=== PATIENT | female | born 1940 | race Caucasian/White ===

== ENCOUNTER 2019-06-30 04:20 | Outpatient (RCR) | payer MEDICARE, OTHER, SELFPAY | END 2019-07-03 00:01 | LOC: LAB 04:20 | PROVIDERS: Family Provider Physician Assistant Medical; Visit Provider Family Medicine | DX: E78.5 Hyperlipidemia, unspecified (principal) | CPT/HCPCS: 80048; 80061; 85025 ==

== ENCOUNTER 2019-07-21 06:00 | Outpatient (RCR) | payer MEDICARE, OTHER, SELFPAY | END 2019-08-03 00:01 | LOC: LAB 06:00 | PROVIDERS: Family Provider Physician Assistant Medical; Visit Provider Family Medicine | DX: N39.0 Urinary tract infection, site not specified (principal); R41.82 Altered mental status, unspecified | CPT/HCPCS: 80053; 81003; 82550; 83735; 85025; 87086 ==

== ENCOUNTER 2019-10-11 11:25 | Observation (INO) | payer MEDICARE, OTHER, SELFPAY ==
[2019-10-11 11:26] VITALS: BMI 25.6
--- NOTE | 2019-10-11 11:26 | CT_ITS ---
WS: [id number] CT HEAD NONCONTRAST HISTORY: Symptoms of Acute Stroke TECHNIQUE: Contiguous axial imaging performed through the brain in 2.5 mm imaging. Bone and soft tiss ue windows. Sagittal and coronal reformats reviewed. All CT scans at [facility] use at ast one of these dose optimization techniques: automated exposure control; mA and/or kV adjustment pe r patient size (includes targeted exams where dose is matched to clinical indication); or iterative r econstruction. DLP: 575.22 mGy.cm COMPARISON: 08/30/2018 Study limited by motion artifact. No acute intracranial hemorrhage, midline shift or mass effect. Moderate atrophy bilaterally. Large remote LEFT frontotemporal infarct. Additional chronic microvascu lar ischemic changes. There is a new area of decreased attenuation in the posterior RIGHT frontal tem poral lobe which may be an area of new infarction. Ventricles: Normal size with no hydrocephalus. Paranasal sinuses: As visualized are clear. Mastoid air cells: Well pneumatized. Calvarium and scalp: Stable lytic area in the LEFT parietal bone. Notified Blair Silveira DO at 10/11/2019 11:[address]/CT head wo con* [id number] IMPRESSION: 1. No acute intracranial hemorrhage or edema. 2. New area of decreased attenuation in the posterior RIGHT frontotemporal reg ion. Could be in an acute infarct. 3. Study limited by motion. 4. Remote LEFT frontotemporal infarct.
--- NOTE | 2019-10-11 11:26 | ECG_ITS ---
Measurements Intervals [place] Rate: 66 P: 85 IL: 204 QRS: 43 QRSD: 93 T: 251 QT: 434 QTc: [address] DEVIATION AND MODERATE T-WAVE ABNORMALITY, CONSIDER LATERAL ISCHEMIA [-0.1+ mV mV T WAVE IN I/aVL/V5/V6] ST DEVIATION AND MODERATE T-WAVE ABNORMALITY, CONSIDER INFERIOR ISCHEMIA [-0.1 mV T WAVE IN II/aVF] Compared to ECG 08/28/2018 14:06:24 Sinus bradycardia no longer present Left-axis deviation no longer present T-wave abnormality still present Possible ischemia still present Electronically Signed On 10-11-2019 20:49:30 CDT by Kirk Friedman M.D. [email or web address]
--- NOTE | 2019-10-11 11:28 | ED_ITS ---
Entered by Kzizy Casillas, acting as scribe for Blair Silveira DO HPI - Neuro Symptoms/Deficit General: Chief Complaint: Seizure Stated Complaint: STROKE LIKE SYMPTOMS Time Seen by Provider: 10/11/19 11:31 Source: EMS Mode of arrival: EMS History of Present Illness: HPI Narrative: 79 yo female presents with stroke like symptoms, L sided facial weakness and facial droop. per nursing staff and EMS the pt was in her wheel chair and she came out to the table when they noticed the facial weakness then she was unresponsive. per EMS when they was moving her to their cot she became more alert and she was talking to them. all symptoms resloved in the ED. pt denies an other symptoms at this time. This time initially seen patient all of her symptoms are completely resolved. Onset (ago): hour(s) (10:30 am) Timing confirmed by: other (nursing staff) Location: left face History of same: No Severity: moderate Quality: weak Relieving factors: none Exacerbating factors: none Context: sudden onset (10:30) Associated symptoms: Reports weakness and other; Deny chest pain, malaise, nausea or vomiting Treatments Prior to Arrival: other (EMS) Review of Systems General: Reports: ROS unobtainable due to medical condition Const: Denies: fever, chills, body aches, change in appetite, fatigue or malaise ENMT: Denies: throat pain, ear pain, nasal discharge or nasal congestion Card: Denies: chest pain, edema, shortness of breath on exertion or shortness of breath when lying down Resp: Denies: shortness of breath, productive cough or non-productive cough GI: Denies: abdominal pain, nausea, vomiting, vomiting blood, coffee grounds in vomit, diarrhea, constipation, bloating, blood in stool or black tarry stool : Denies: flank pain, difficulty urinating, painful urination, urinary frequency or urinary urgency Skin/Breast: Denies: rash or itching PFS ED PFSH: Medical History (Updated 10/12/19 @ 10:00 by Kalpesh Gaviria MD) Anemia Stable CAD (coronary artery disease) Carotid artery disease Chronic kidney disease (CKD) CVA (cerebral vascular accident) Dementia Diabetes Hyperlipidemia Hypertension Parkinson disease Peripheral neuropathy Surgical History (Updated 10/11/19 @ 14:54 by Kalpesh Gaviria MD) History of left-sided carotid endarterectomy Family History (Updated 10/11/19 @ 14:54 by Kalpesh Gaviria MD) Other Stroke Social History (Updated 10/11/19 @ 14:54 by Kalpesh Gaviria MD) Smoking and tobacco status: former smoker Alcohol intake: never Substance/Drug Use: never NIH stroke score NIHSS: Level Of Consciousness - 1a: 0 Level Of Consciousness Questions - 1b: Both Correct Level Of Consciousness Commands - 1c: Both Correct Best Gaze - 2: Normal Visual Mar - 3: No Visual Loss Facial Palsy - 4: Nor mal Motor Arm Right - 5: No Drift Motor Arm Left - 5: No Drift Motor Leg Right - 6: No Drift Motor Leg Left - 6: No Drift Limb Ataxia - 7: Absent Sensory - 8: Normal Best Language - 9: No Aphasia Dysarthia - 10: Normal Extinction And Inattention - 11: 0 Score: Total Score: 0 Physical Exam Const: COMMON NORMALS: no apparent distress GENERAL APPEARANCE: cooperative and comfortable ORIENTATION/CONSCIOUSNESS: Yes awake, Yes oriented to person, Yes oriented to place and Yes oriented to time HENMT: COMMON NORMALS: normocephalic, head/scalp atraumatic, hearing grossly normal bilaterally, external ears normal, EAC's normal, TM's normal bilaterally, nasal mucous membranes and turbinates normal, moist oral mucous membranes and oropharynx normal HEAD & SCALP: normocephalic and atraumatic NOSE: nasal mucous membranes and turbinates normal EXTERNAL EAR: Yes external ears normal EXTERNAL AUDITORY CANAL: EAC's normal TYMPANIC MEMBRANE: TM's normal bilaterally Eye: COMMON NORMALS: PERRL, EOMs intact bilaterally, conjunctivae normal and no scleral icterus CONJUNCTIVA: Yes conjunctivae normal PUPIL: Yes PERRL Neck/C-Spine: COMMON NORMALS: full ROM, no lymphadenopathy, supple and no JVD Lymph: LYMPHATIC: no lymphadenopathy noted and no lymphedema noted Resp: COMMON NORMALS: normal respiratory effort, no retractions, no use of accessory muscles and clear to auscultation bilaterally AUSCULTATION: clear to auscultation bilaterally Cardio: COMMON NORMALS: no JVD, regular rate, regular rhythm and no murmurs RATE: regular rate RHYTHM: regular rhythm GI: COMMON NORMALS: soft to palpation and no hepatosplenomegaly AUSCULTATION: Yes normoactive bowel sounds PALPATION: Yes soft, No tender, No guarding and Yes no hepatosplenomegaly Extremity: COMMON NORMALS: normal to inspection, normal capillary refill, no clubbing, cyanosis or edema, no calf tenderness and no pedal edema Neuro: SENSORIUM/ORIENTATION: Yes oriented to person, Yes oriented to place and Yes oriented to time Skin: COMMON NORMALS: no rashes or lesions noted GENERAL SKIN EXAM: no rashes or lesions noted Course ED course: No bleed on the CT but there is an subacute CVA. We will go and admit the patient for further evaluation. At time of admission her symptoms are still completely resolved. Vital Signs: Vital signs: Vital Signs Temperature 98.7 F 10/12/19 11:14 Pulse Rate 77 10/12/19 11:14 Respiratory Rate 18 10/12/19 11:14 Blood Pressure 171/72 10/12/19 11:14 Pulse Oximetry 90 10/12/19 11:14 MDM - Neuro Symptoms/Deficit Lab Data: Labs: Lab Results 10/11/19 10/11/19 10/11/19 Range/Units 11:48 11:48 11:48 WBC 4.8 (4.0-10.0) 10^3/ uL RBC 3.92 L (4.1-5.3) 10^6/u L Hgb 11.2 L (11.5-15.3) g/dL Hct 36.6 L (37.0-47.0) % MCV 93.4 (81-99) fL MCH 28.6 (28.0-34.0) pg MCHC 30.6 (30.0-36.0) g/dL RDW 14.1 (12.1-15.1) % Plt Count 156 (130-400) 10^3/c mm MPV 9.5 (7.4-10.4) fL Neut % (Auto) 56.5 % Lymph % (Auto) 30.5 % Stephens % (Auto) 9.5 % Eos % (Auto) 2.7 % Baso % (Auto) 0.6 % Neut # (Auto) 2.7 (1.8-7.7) 10^3/u L Lymph # (Auto) 1.5 (0.8-4.8) 10^3/u L Stephens # (Auto) 0.5 (0.2-0.9) 10^3/u L Eos # (Auto) 0.1 (0.0-0.8) 10^3/u L Baso # (Auto) 0.0 (0.0-0.1) 10^3/u L Nucleated RBC % (a uto) 0 % Nucleated RBCs # 0.0 /100WBC PT 12.60 (10.5-13.3) SECO NDS INR 0.92 (0.8-1.2) APTT 33.5 (23.9-36.7) SECO NDS Sodium 143 (136-145) mmol/L Potassium 4.1 (3.5-5.1) mmol/L Chloride 105 (98-107) mmol/L Carbon Dioxide 26 (22-29) mmol/L Anion Gap 16.1 (5-19) BUN 21 (8-23) mg/dL Creatinine 1.3 H (0.5-0.9) mg/dL Glucose 131 H (65-115) mg/dL Calculated Osmolal ity 294 (285-295) mOsm/k g Calcium 9.8 (8.5-10.5) mg/dL Total Bilirubin 0.2 (0.15-1.2) mg/dL AST 19 (0-32) U/L ALT 12 (0-33) U/L Alkaline Phosphata se 82 (35-105) IU/L Troponin T Baselin e (0-10) ng/mL Total Protein 6.8 (6.6-8.7) g/dL Albumin 4.2 (3.5-5.2) g/dL Globulin 2.6 (1.3-4.6) g/dL Urine Color (Yellow) Urine Appearance (CLEAR) Urine pH (5-7) Ur Specific Gravit y (1.005-1.030) Urine Protein (Negative) Urine Glucose (UA) (Normal) Urine Ketones (Negative) Urine Blood (Negative) Urine Nitrate (Negative) Urine Bilirubin (NEGATIVE) Urine Urobilinogen (Negative) mg/dL Ur Leukocyte Ernestina ase (Negative) Urine RBC (0-2) /hpf Urine WBC (0-5) /hpf Ur Squamous Epith Cells (0-5) Urine Bacteria (NONE) Hyaline Casts Urine Opiates Scre en (Negative) ng/mL Ur Barbiturates Sc reen (Negative) ng/mL Ur Phencyclidine S crn (Negative) ng/mL Ur Amphetamines Sc reen (Negative) ng/mL U Benzodiazepines Scrn (Negative) ng/mL Urine Cocaine Scre en (Negative) ng/mL U Marijuana (THC) Screen (Negative) ng/mL 10/11/19 10/11/19 10/11/19 Range/Units 11:48 12:08 12:08 WBC (4.0-10.0) 10^3/ uL RBC (4.1-5.3) 10^6/u L Hgb (11.5-15.3) g/dL Hct (37.0-47.0) % MCV (81-99) fL MCH (28.0-34.0) pg MCHC (30.0-36.0) g/dL RDW (12.1-15.1) % Plt Count (130-400) 10^3/c mm MPV (7.4-10.4) fL Neut % (Auto) % Lymph % (Auto) % Stephens % (Auto) % Eos % (Auto) % Baso % (Auto) % Neut # (Auto) (1.8-7.7) 10^3/u L Lymph # (Auto) (0.8-4.8) 10^3/u L Stephens # (Auto) (0.2-0.9) 10^3/u L Eos # (Auto) (0.0-0.8) 10^3/u L Baso # (Auto) (0.0-0.1) 10^3/u L Nucleated RBC % (a uto) % Nucleated RBCs # /100WBC PT (10.5-13.3) SECO NDS INR (0.8-1.2) APTT (23.9-36.7) SECO NDS Sodium (136-145) mmol/L Potassium (3.5-5.1) mmol/L Chloride (98-107) mmol/L Carbon Dioxide (22-29) mmol/L Anion Gap (5-19) BUN (8-23) mg/dL Creatinine (0.5-0.9) mg/dL Glucose (65-115) mg/dL Calculated Osmolal ity (285-295) mOsm/k g Calcium (8.5-10.5) mg/dL Total Bilirubin (0.15-1.2) mg/dL AST (0-32) U/L ALT (0-33) U/L Alkaline Phosphata se (35-105) IU/L Troponin T Baselin e 25 H (0-10) ng/mL Total Protein (6.6-8.7) g/dL Albumin (3.5-5.2) g/dL Globulin (1.3-4.6) g/dL Urine Color Yellow (Yellow) Urine Appearance Clear (CLEAR) Urine pH 6 (5-7) Ur Specific Gravit y 1.015 (1.005-1.030) Urine Protein Neg (Negative) Urine Glucose (UA) Norm (Normal) Urine Ketones Negative (Negative) Urine Blood Neg (Negative) Urine Nitrate Negative (Negative) Urine Bilirubin Neg (NEGATIVE) Urine Urobilinogen Norm (Negative) mg/dL Ur Leukocyte Ernestina ase 1+ H (Negative) Urine RBC None (0-2) /hpf Urine WBC 5-10 H (0-5) /hpf Ur Squamous Epith Cells 0-4 H (0-5) Urine Bacteria 1+ H (NONE) Hyaline Casts 0-4 H Urine Opiates Scre en Negative (Negative) ng/mL Ur Barbiturates Sc reen Negative (Negative) ng/mL Ur Phencyclidine S crn Negative (Negative) ng/mL Ur Amphetamines Sc reen Negative (Negative) ng/mL U Benzodiazepines Scrn Negative (Negative) ng/mL Urine Cocaine Scre en Negative (Negative) ng/mL U Marijuana (THC) Screen Negative (Negative) ng/mL Discharge Plan Discharge Patient Disposition: Admitted As Inpatient Admit Provider: Kalpesh Gaviria Clinical Impression: Acute CVA (cerebrovascular accident) Condition: Stable Discharge Orders: Discharge Order (Routine); Ordered 10/12/19 Ordered By: Kalpesh Gaviria Referrals: Surendra Matute [Family Provider] - 1 month (follow up with his primary care in [facility]) Discharge Diet: Diabetic Discharge Activity: Resume usual activity Patient Instructions: Anemia, Cefuroxime (By mouth), Aspirin (By mouth), Atorvastatin (By mouth), Parkinson's Disease (DC), Carotid Artery Disease (DC), Stroke Stoplight Additional Instructions: Take all medicine as prescribed. No doses have changed for Lipitor, aspirin. Discharge Date/Time: 10/11/19 14:18 Coding Level of Care Code ED Life Assurance Representative for Chg Fwd Exam Comprehensive The documentation recorded by the Vinny herrera Bridget Annette, accurately reflects the service I personally performed and the decisions made by Jordana mayfield Curtis L, DO Oct 11, 2019 11:25
[2019-10-11 11:39] VITALS: BP 184/78; PULSE 68; RESP 20; TEMP 36.6; O2SAT 95
[2019-10-11 11:56] LABS: Basophils % 0.6 %; Eosinophils # 0.1 10^3/uL (0.0-0.8); Eosinophils % 2.7 %; Hematocrit 36.6 % (37.0-47.0); Hemoglobin 11.2 g/dL (11.5-15.3); Lymphocytes # 1.5 10^3/uL (0.8-4.8); Lymphocytes % 30.5 %; Mean Corpuscular HGB Conc 30.6 g/dL (30.0-36.0); Mean Corpuscular Hemoglobin 28.6 pg (28.0-34.0); Mean Corpuscular Volume 93.4 fL (81-99); Mean Platelet Volume 9.5 fL (7.4-10.4); Monocytes # 0.5 10^3/uL (0.2-0.9); Monocytes % 9.5 %; Neutrophils # 2.7 10^3/uL (1.8-7.7); Neutrophils % 56.5 %; Nucleated Red Blood Cells % 0 %; Platelet Count 156 10^3/cmm (130-400); Red Blood Count 3.92 10^6/uL (4.1-5.3); Red Cell Distribution Width 14.1 % (12.1-15.1); White Blood Count 4.8 10^3/uL (4.0-10.0)
[2019-10-11 12:08] LABS: INR 0.92 (0.8-1.2)
[2019-10-11 12:09] LABS: Partial Thromboplastin Time 33.5 SECONDS (23.9-36.7)
[2019-10-11 12:13] LABS: Alanine Aminotransferase 12 U/L (0-33); Albumin Level 4.2 g/dL (3.5-5.2); Alkaline Phosphatase 82 IU/L (35-105); Anion Gap 16.1 (5-19); Aspartate Amino Transferase 19 U/L (0-32); Blood Urea Nitrogen 21 mg/dL (8-23); Calcium 9.8 mg/dL (8.5-10.5); Carbon Dioxide 26 mmol/L (22-29); Chloride 105 mmol/L (98-107); Globulin 2.6 g/dL (1.3-4.6); Glucose 131 mg/dL (65-115); Osmolality Calculated 294 mOsm/kg (285-295); Potassium 4.1 mmol/L (3.5-5.1); Sodium 143 mmol/L (136-145); Total Bilirubin 0.2 mg/dL (0.15-1.2); Total Protein 6.8 g/dL (6.6-8.7)
[2019-10-11 12:30] LABS: Add Urine Microscopic? YES; Bilirubin Urine Neg (NEGATIVE); Blood Urine Neg (Negative); Glucose Urine UA Norm (Normal); Ketones Urine Negative (Negative); Leukocyte Esterase Urine 1+ (Negative); Nitrate Urine Negative (Negative); Protein Urine Neg (Negative); Specific Gravity, Urine 1.015 (1.005-1.030); Urine Appearance Clear (CLEAR); Urine Color Yellow (Yellow); Urobilinogen Urine Norm (Negative); pH Urine 6 (5-7)
--- NOTE | 2019-10-11 12:32 | PC.NURSE ---
PHYSICAL ASSESSMENT Chief Complaint: PER NH: Stroke GENERAL / NEURO / PSYCH: Alert and oriented x 4, Tremor noted to left arm/hand ( normal per patient). NIHSS: 4 ( see stroke packet ) . Patient able to sit up, stand, and transfer to bedside commode. LB COMA SCORE: 15 HEENT: Facial asymmetry noted. Mucous membranes are pink. RESPIRATORY: Lung sounds clear and equal. Non-productive cough CVS: Capillary refill less than 2 seconds. GI / : Abdomen soft and nontender and normal bowel sounds. SKIN: Skin intact. Skin is warm and dry. Normal skin turgor. -
--- NOTE | 2019-10-11 12:34 | PC.NURSE ---
sound printer, pulse oximeter and NIBP monitor placed on patient; information assoc- Lead I, II and III; monitor alarms on.
[2019-10-11 12:38] LABS: Add Urine Culture? No; Bacteria Urine 1+; Hyaline Casts Urine 0-4; Squamous Epithelial Cell Urine 0-4 (0-5)
[2019-10-11 12:39] LABS: Amphetamines Screen Urine Negative (Negative); Barbiturates Screen Urine Negative (Negative); Benzodiazepines Screen Urine Negative (Negative); Cocaine Screen Urine Negative (Negative); Opiate Screen Urine Negative (Negative); PCP Screen Urine Negative (Negative); THC Screen Urine Negative (Negative)
--- NOTE | 2019-10-11 13:53 | XRR_ITS ---
PROCEDURE INFORMATION: Exam: XR Chest, 1 View Exam date and time: 10/11/2019 2:02 PM Age: 79 years old Clinical indication: Other: Stroke like symptoms; Additional info: CVA TECHNIQUE: Imaging protocol: XR of the chest Views: 1 view. COMPARISON: CR Chest 1 [place] [id number] 08/28/2018 1:08 PM FINDINGS: Lungs: There is patchy consolidation in the lingula along the left heart border. The right lung is clear. There is lung emphysema. Pleural space: Unremarkable. No pleural effusion. No pneumothorax. Heart/Mediastinum: Unremarkable. No cardiomegaly. Bones/joints: Unremarkable. XR/XR chest 1V portable [id number] IMPRESSION: There is patchy consolidation in the lingula consistent with atelectasis and/or pneumonia.
[2019-10-11 14:04] LABS: Troponin(5th) Baseline 25 ng/mL (0-10)
[2019-10-11 14:15] LABS: Troponin 5 2HR 30.38 ng/mL (0-10); Troponin 5 2HR Delta 5.38 ABS# (0-10)
[2019-10-11 14:17] VITALS: BP 116/90; PULSE 59; RESP 14; O2SAT 92
[2019-10-11 14:28] VITALS: BP 175/74; PULSE 57; RESP 14; TEMP 36.2; O2SAT 94
--- NOTE | 2019-10-11 14:28 | USCV_ITS ---
Ghazaal Crawford Age: 79 Gender: F : 1940 Exam Date: 10/11/2019 17:56 Ordering Phys: Kalpesh Gaviria MD Technologist: Estephania Gage [place] [facility] [place]: CVA BP: / HR: 62 Rhythm: Sinus Technical Quality: Adequate MEASUREMENTS (Male / Female) Normal Values 2D ECHO LV Diastolic Diameter PLAX 4.5 cm 4.2 - 5.9 / 3.9 - 5.3 cm LV Systolic Diameter PLAX 2.9 cm LV Chamber Size 3.2 cm IVS Diastolic Thickness 1.0 cm 0.6 - 1.0 / 0.6 - 0.9 cm IVS Systolic Thickness 1.3 cm LVPW Diastolic Thickness 1.3 cm 0.6 - 1.0 / 0.6 - 0.9 cm LVPW Systolic Thickness 1.6 cm RV Chamber Size 2.7 cm LVOT Diameter 2.0 cm LV Ejection Fraction 2D Teich 63.5 % LV Ejection Fraction MOD 2C 50.9 % LV Ejection Fraction 2C AL 53.0 % LA Diameter 3.7 cm LA Width 3.3 cm LA Height 5.0 cm RA Width 3.8 cm RA Height 5.3 cm Aorta at Sinotubular Diameter 2.0 cm M-MODE LV Diastolic Diameter MM 5.2 cm 4.2 - 5.9 / 3.9 - 5.3 cm LV Systolic Diameter MM 3.5 cm LV Ejection Fraction MM Teich 61.5 % IVS Diastolic Thickness MM 0.8 cm 0.6 - 1.0 / 0.6 - 0.9 cm IVS Systolic Thickness MM 0.9 cm LVPW Diastolic Thickness MM 1.2 cm 0.6 - 1.0 / 0.6 - 0.9 cm LVPW Systolic Thickness MM 1.3 cm Aortic Annulus Diameter 2.9 cm LA Ao Ratio MM 1.3 MV E Point Septal Separation 1.2 cm DOPPLER AV Peak Velocity 144.0 cm/s LVOT Peak Velocity 114.0 cm/s AV Area Cont Eq vti 2.8 cm squared AV Area Cont Eq pk 2.6 cm squared MV Area PHT 3.3 cm squared Mitral E to A Ratio 0.8 MV E' Velocity 11.0 cm/s Mitral E to MV E' Ratio 8.4 Mitral E to LV E' Lateral Ratio 8.4 Mitral E to LV E' Septal Ratio 8.5 TR Peak Velocity 157.0 cm/s TR Peak Gradient 9.9 mmHg TV Peak E Velocity 51.0 cm/s Right Atrial Pressure 3.0 mmHg Pulmonary Artery Systolic Pressu 12.9 mmHg PV Peak Velocity 72.0 cm/s RV Acceleration Time 0.1 s RV Ejection Time 0.4 s RV AcT/ET 0.4 FINDINGS Left Ventricle Normal left ventricular size and systolic function, EF 55 %. No regional wall motion abnormalities. Grade I/IV diastolic dysfunction (abnormal relaxation filling pattern), normal to mildly elevated filling pressures. Right Ventricle Normal right ventricular size and systolic function. Right Atrium Mildly increased right atrial size. Left Atrium Mildly increased left atrial size. Mitral Valve Mild mitral annular calcification. Aortic Valve Thickened aortic valve. Tricuspid Valve No gross abnormalities noted Pulmonic Valve No gross abnormalities noted Pericardium No pericardial effusion. Aorta Normal aortic annulus size. CONCLUSIONS Normal left ventricular size and systolic function, EF 55 %. No regional wall motion abnormalities. Grade I/IV diastolic dysfunction (abnormal relaxation filling pattern), normal to mildly elevated filling pressures. Mild biatrial enlargement Mild mitral annular calcification. Thickened aortic valve. There is no pericardial effusion. There are no intracardiac masses. Compared to the study from 08/29/2018, there may not be a significant change Dr Rene Wise MD FACC (Electronically Signed) Final Date: 11 October 2019 23:51 S
--- NOTE | 2019-10-11 14:28 | USCV_ITS ---
Ghazala Crawford Age: 79 Gender: F : 1940 Exam Date: 10/11/2019 18:08 Ordering Phys: Kalpesh Gaviria MD Technologist: Estephania Gage [place]am Location: [facility] [place]: CVA Risk Factors: Previous Vascular Surgery: Right Brachial BP: / Left Brachial BP: / Right Left Velocity (cm/s) Spectral Plaque Velocity (cm/s) Spectral Plaque Syst/Diast Broadening Syst/Diast Broadening 61.90/ 6.70 Prox CCA 64.80 / 16.00 57.10/ 11.10 Mid CCA 82.00 / 13.70 44.50/ 12.60 Distal CCA 90.10 / 15.50 83.20/ 8.40 Prox ICA 23.80 / 8.90 82.00/ 20.10 Mid ICA 171.40/ 37.30 66.30/ 12.20 Distal ICA 215.80/ 51.50 106.70 ECA 64.80 1.46 ICA/CCA 2.63 Antegrade Vertebral Antegrade 40.40/ 9.50 cm/s 33.50/ 7.60 cm/s Tri Subclavian Tri 59.90 47.50 FINDINGS Moderate to heavy plaques at the mid to distal internal carotid artery on the left side. Moderate heterogeneous plaques of the right bifurcation and internal carotid artery. Antegrade flow in the vertebral arteries bilaterally Normal Doppler flow velocities in the external carotid arteries bilaterally CONCLUSIONS Moderate to heavy plaques at the mid to distal internal carotid artery on the left side with a hemodynamically significant stenosis Moderate heterogeneous plaques at the right bifurcation and internal carotid arterywith velocity elevation consistent with 16-49% stenosis. Consider CTA, to better evaluate the mid and distal ICA on the left side. Dr Rene Wise MD FACC (Electronically Signed) Final Date: 11 October 2019 23:57 S
--- NOTE | 2019-10-11 14:48 | PM.HP ---
Providers/Chief Complaint Admitting Physician: Kalpesh Gaviria MD Chief Complaint: STROKE LIKE SYMPTOMS History of Present Illness Ghazala Crawford is a 79 year old female who presents from the assisted with concern of strokelike symptoms. According to family who is present, they report the nursing facility called him this morning around 10:30 AM and reported that her mother was not acting normal, and could not really move her right side. Patient cannot remember the event. They report by the time the ambulance arrived she was doing better, and back to her baseline by the time she arrived in the emergency department. She has had stroke symptoms before and has known significant carotid artery disease. Patient reports she feels better currently and denies any specific complaints. She denies any chest discomfort. Patient herself cannot give any other history regarding the event. She has an underlying history of dementia associated with Parkinson's as well as significant hearing loss. Review of Systems General: Reports: 10 or more systems reviewed and unremarkable except in HPI and below Const: Denies: fever or chills Eyes: Denies: blurry vision ENMT: Denies: throat pain Card: Denies: chest pain Resp: Denies: shortness of breath GI: Denies: abdominal pain, blood in stool or black tarry stool : Denies: difficulty urinating Musc: Denies: neck pain Skin/Breast: Denies: rash Neuro: Reports: weakness in extremities Psych: Denies: depression Endo: Denies: excessive urination Noah/Lymph: Denies: easy bruising All/Imm: Denies: hives Medications/Allergies Home Medications Medication Instructions Recorded Confirmed Last Taken Type acetaminophen [Tylenol] 650 mg PO QID PRN 10/11/19 10/11/19 10/11/19 History amlodipine 7.5 mg PO DAILY 10/11/19 10/11/19 10/11/19 History aspirin 81 mg PO DAILY 10/11/19 10/11/19 10/11/19 History atenolol 50 mg PO DAILY 10/11/19 10/11/19 10/11/19 History atorvastatin 40 mg PO DAILY 10/11/19 10/11/19 10/10/19 History carbidopa-levodopa 1 tab PO DAILY 10/11/19 10/11/19 10/10/19 History clopidogrel 75 mg PO DAILY 10/11/19 10/11/19 10/10/19 History gabapentin 300 mg PO BID 10/11/19 10/11/19 10/11/19 History glipizide 2.5 mg PO DAILY 10/11/19 10/11/19 10/11/19 History metformin 500 mg PO DAILY 10/11/19 10/11/19 10/10/19 History oofxlpfs-lxno-AC-calcium-mins 1 tab PO DAILY 10/11/19 10/11/19 10/11/19 History [Thera-M] omega 6-jba-vyt-fish oil [[place]-3] 1 cap PO DAILY 10/11/19 10/11/19 10/11/19 History pramipexole 1 mg PO QID 10/11/19 10/11/19 10/11/19 History quetiapine [Seroquel] 25 mg PO DAILY 10/11/19 10/11/19 10/10/19 History Allergies Allergy/AdvReac Type Severity Reaction Status Date / Time No Known Allergies Allergy Verified 10/11/19 11:42 PFSH Acute PFSH: Medical History (Updated 10/11/19 @ 15:00 by Kalpesh Gaviria MD) Anemia CAD (coronary artery disease) Carotid artery disease Chronic kidney disease (CKD) CVA (cerebral vascular accident) Dementia Diabetes Hyperlipidemia Hypertension Parkinson disease Peripheral neuropathy Surgical History (Updated 10/11/19 @ 14:54 by Kalpesh Gaviria MD) History of left-sided carotid endarterectomy Family History (Updated 10/11/19 @ 14:54 by Kalpesh Gaviria MD) Other Stroke Social History (Updated 10/11/19 @ 14:54 by Kalpesh Gaviria MD) Smoking and tobacco status: former smoker Alcohol intake: never Substance/Drug Use: never Vitals/I&O/Wt Last Vital Signs Temp 97.8 F 10/11/19 11:39 Pulse 59 L 10/11/19 14:17 Resp 14 10/11/19 14:17 BP 116/90 10/11/19 14:17 Pulse Ox 92 10/11/19 14:17 Weight last 48 hrs Weight 63.503 kg Physical Exam Narrative: EXAM NARRATIVE: General exam is no apparent distress, hard of hearing but conversant. Seems forgetful. HEENT: Pupils equally round. Oropharynx is clear. Neck is supple no lymphadenopathy or thyromegaly. No bruits heard. Cardiovascular regular rate and rhythm without murmur. Heart sounds distant Lungs clear no wheezing or crackles Abdomen is soft with positive bowel sounds. No obvious organomegaly was deferred Extremities no cyanosis clubbing or edema, cap refill brisk Skin no rash Neuro no obvious focal deficits currently Data : 10/11/19 11:48 10/11/19 11:48 Other data: CT demonstrates what appears to be a subacute stroke, right frontotemporal area. Old CVA noted left frontotemporal area. Chest x-ray by my read does not appear to show an abnormality EKG demonstrates flipped T waves inferior, lateral and posterior. Inferior changes appear new. Troponin appears to be slightly elevated but no significant delta and patient is not having any chest discomfort. Urine shows a UTI with 5-10 white blood cells per high-powered field A&P Assessment and plan (1) Acute CVA (cerebrovascular accident): Concern from the nursing facility that she was not moving her right arm. This would be consistent with abnormality on CT scan left frontotemporal area. It is since resolved. Increase statin Increase aspirin to 3 and 25 mg Continue Plavix As symptoms have greatly resolved will involve physical therapy and Occupational Therapy. No apparent speech therapy needs currently but will continue to monitor Observation for now Check echocardiogram, carotid duplex Permissive hypertension with the exception of beta-tess which will start tomorrow secondary to concern of withdrawal Neurologic checks Hydration Status: Acute Code(s): I63.9 - Cerebral infarction, unspecified (2) Elevated troponin: .Myocardial infarction. Likely type II. Continue to check serial troponins Check echocardiogram Status: Acute Code(s): R79.89 - Other specified abnormal findings of blood chemistry (3) Anemia: Appears to be chronic after looking at old laboratory Status: Acute Code(s): D64.9 - Anemia, unspecified Additional A&P Information Parkinson's disease History of dementia, Lewy body History of carotid artery disease, checking carotid ultrasound Chronic kidney disease stage II History of type 2 diabetes History of hypertension Parkinson's disease, continue home medications Hyperlipidemia, statin increased History of neuropathy, continue Neurontin Discussed in detail with family. She is currently a full code Discussed in detail that she had prior significant carotid artery disease. They are not for sure if they would want to consider any surgery. They will be discussing this further. Attestations Medical Necessity Statement*: At this point will need less than 2 midnight stay for evaluation of CVA considering symptomatology has resolved significantly Time Spent in Patient Care: Greater than 35 minutes Coding Level of Care Code Acute Opening Machine Cleaner for Eding Fwd Diagnoses Acute CVA (cerebrovascular accident) I63.9 Elevated troponin R79.89 Anemia D64.9
[2019-10-11 15:08] LABS: Troponin(5th) Baseline 28 ng/mL (0-10)
--- NOTE | 2019-10-11 15:09 | ECG_ITS ---
Measurements Intervals [place] Rate: 55 P: 72 [place]: 195 QRS: -5 QRSD: 93 T: 137 QT: 459 QTc: [address] DEVIATION AND MODERATE T-WAVE ABNORMALITY, CONSIDER LATERAL ISCHEMIA [-0.1+ mV T WAVE IN I/aVL/V5/V6] Compared to ECG 08/28/2018 14:06:24 Left-axis deviation no longer present T-wave abnormality still present Possible ischemia still present Electronically Signed On 10-11-2019 20:53:42 CDT by Kirk Friedman M.D. [id number]
[2019-10-11 17:04] LABS: Glucose Point of Care 128 mg/dL (70-110)
[2019-10-11 17:04] LABS: Glucose Point of Care 136 mg/dL (70-110)
[2019-10-11] MEDS: gabapentin 300 mg Capsule PO (17:40)
[2019-10-11] MEDS: enoxaparin 40 mg/0.4 mL Syringe SUBCUT (17:46)
[2019-10-11] MEDS: sodium chloride 0.9% 1,000 ML 75 ML IV (17:46)
[2019-10-11] MEDS: cefTRIAXone 1,000 MG in sodium chloride 0.9% (plus) 50 ML 100 MG IV (17:46)
[2019-10-11] MEDS: pramipexole 0.25 mg Tablet 1 MG PO ×2 (17:55→19:54)
[2019-10-11 18:58] LABS: Troponin 5 6HR 29.22 ng/mL (0-10); Troponin 5 6HR Delta 1.22 ng/L (0-12)
--- NOTE | 2019-10-11 19:09 | ECG_ITS ---
Measurements Intervals [place] Rate: 56 P: 60 [place]: 196 QRS: -23 QRSD: 92 T: 142 QT: 462 QTc: 447 SINUS BRADYCARDIA BORDERLINE LEFT AXIS DEVIATION [QRS AXIS < -20] ST DEVIATION AND MODERATE T-WAVE ABNORMALITY, CONSIDER LATERAL ISCHEMIA [-0.1+ mV T WAVE IN I/aVL/V5/V6] INTERPRETATION BASED ON A DEFAULT AGE OF 40 YEARS Compared to ECG 10/11/2019 14:50:22 No significant changes Electronically Signed On 10-13-2019 9:05:15 CDT by Quincy Tipton M.D. [id number]
[2019-10-11 19:51] LABS: Glucose Point of Care 142 mg/dL (70-110)
[2019-10-11] MEDS: carbidopa-levodopa ER 50-200mg Tablet 1 EACH PO (19:54)
[2019-10-11] MEDS: quetiapine 25 mg Tablet PO (19:55)
[2019-10-11 20:00] VITALS: BP 141/64; PULSE 54; RESP 24; TEMP 36.4; O2SAT 94
--- NOTE | 2019-10-11 23:30 | PHA.FALL ---
A Pharmacy Consult Was Conducted For Ghazala Yuli BarrazaTy Due To: [place] Fall Scale Risk Level: High Fall Risk On 10/11/19 19:19 And A Medication Fall Risk Score Greater Than 12. The Recommendations Are As Follows: Insulin can cause Hyoglycemia Atenolol can cause Orthostatic hypotension, dizziness, syncope, bradycardia, impaired cerebral perfusion Quetiapine can cause psychomotor impairment, sedation, orthostatic hypotension, confusion, dizziness, confusion Thank you, Karime Soriano [facility]
[2019-10-11 23:59] VITALS: PULSE 56; O2SAT 92
[2019-10-12] VITALS: BP 171/73; PULSE 50; RESP 16; TEMP 36.4; O2SAT 91
--- NOTE | 2019-10-12 03:31 | PC.NURSE ---
2229- went in to do hourly rounding on my pt. pt was confused, garbled speech, pt sat straight up in bed. pt was withdrawn not answering my questions but is able to move all extremities without any issues. pt has hx of dementia, parkinsons, and had her nighttime dose of seroquel. i notified pt's son to see if this is baseline for her at night and not related to the stroke. son states that she does have episodes like this and that she has been off schedule with her medications and sleep, and that when she takes seroquel that happens at times. Son states this is not out of the ordinary for her. i told the son that i will continue to monitor her for any worsening symptoms and call him if anything changes.
--- NOTE | 2019-10-12 03:38 | PC.NURSE ---
pt is sleeping with no s/s of distress or agitation, vss resp equal bilaterally. continue to monitor
[2019-10-12 04:00] VITALS: BP 180/83; PULSE 59; RESP 16; TEMP 36.9; O2SAT 92
[2019-10-12 04:56] LABS: Basophils % 0.4 %; Eosinophils # 0.1 10^3/uL (0.0-0.8); Eosinophils % 2.9 %; Hematocrit 34.5 % (37.0-47.0); Hemoglobin 10.6 g/dL (11.5-15.3); Lymphocytes # 1.6 10^3/uL (0.8-4.8); Lymphocytes % 35.6 %; Mean Corpuscular HGB Conc 30.7 g/dL (30.0-36.0); Mean Corpuscular Hemoglobin 27.2 pg (28.0-34.0); Mean Corpuscular Volume 88.7 fL (81-99); Mean Platelet Volume 9.7 fL (7.4-10.4); Monocytes # 0.3 10^3/uL (0.2-0.9); Monocytes % 6.4 %; Neutrophils # 2.5 10^3/uL (1.8-7.7); Neutrophils % 54.5 %; Nucleated Red Blood Cells % 0 %; Platelet Count 160 10^3/cmm (130-400); Red Blood Count 3.89 10^6/uL (4.1-5.3); Red Cell Distribution Width 13.9 % (12.1-15.1); White Blood Count 4.5 10^3/uL (4.0-10.0)
[2019-10-12 05:05] LABS: Anion Gap 14.3 (5-19); Blood Urea Nitrogen 16 mg/dL (8-23); Calcium 9.8 mg/dL (8.5-10.5); Carbon Dioxide 25 mmol/L (22-29); Chloride 106 mmol/L (98-107); Glucose 133 mg/dL (65-115); Osmolality Calculated 290 mOsm/kg (285-295); Potassium 4.3 mmol/L (3.5-5.1); Sodium 141 mmol/L (136-145)
[2019-10-12 07:27] VITALS: BP 197/77; PULSE 55; RESP 18; TEMP 36.7; O2SAT 94
[2019-10-12] MEDS: sodium chloride 0.9% 1,000 ML 75 ML IV (08:50)
[2019-10-12] MEDS: omega-3 fatty acids 1,000 mg Capsule 1000 MG PO (08:56)
[2019-10-12] MEDS: gabapentin 300 mg Capsule PO (08:56)
[2019-10-12] MEDS: atenolol 50 mg Tablet PO (08:56)
[2019-10-12] MEDS: atorvastatin 40 mg Tablet 80 MG PO (08:56)
[2019-10-12] MEDS: clopidogrel 75 mg Tablet PO (08:56)
[2019-10-12] MEDS: aspirin 325 mg EC Tablet PO (08:56)
[2019-10-12] MEDS: pramipexole 0.25 mg Tablet 1 MG PO (09:32)
--- NOTE | 2019-10-12 10:00 | PM.DCS ---
Discharge Providers Date of Admission: 10/11/19 12:49 Date of Discharge: October 12, 2019 Attending Provider at Admission: Kalpesh Gaviria MD Attending Provider at Discharge: Kalpesh Gaviria MD Diagnoses at Discharge Discharge Diagnosis (1) Acute CVA (cerebrovascular accident): Status: Acute Problem details: Subacute CVA. Aspirin increased. Lipitor increased. Patient had resolution of symptoms. Carotid ultrasound unchanged. At this point family is not interested in carotid endarterectomy. (2) Elevated troponin: Status: Acute Problem details: EF preserved. Patient without chest pain. Troponin with no significant delta. (3) Anemia: Status: Acute Problem details: Stable Reason for Visit Reason for Visit: Reason For Visit: STROKE LIKE SYMPTOMS Hospital Course Hospital Course: Ghazala presented to the hospital with concerning symptoms for stroke at the nursing facility with difficulty moving her left upper extremity, and decreased responsiveness. She was brought into the emergency department and at that point stroke symptoms had significantly dissipated. EKG demonstrated sinus rhythm. Urine demonstrated possible mild UTI. CT scan demonstrated probable subacute stroke right frontotemporal region. She was monitored overnight. Telemetry demonstrated sinus rhythm. Echocardiogram demonstrated preserved EF, no thrombus. Carotid duplex was unchanged. Significant stenosis flow-limiting on the left which was known about previously for many years and right carotid with less than 50% stenosis by flow measurement. As her symptoms are gone away, she requested discharge, family did not want consideration of endarterectomy if ultrasound was unchanged she was discharged back to the nursing facility on a higher dose of aspirin, continue Plavix, higher dose of Lipitor. Physical Exam Narrative: EXAM NARRATIVE: General exam no apparent distress Cardiovascular regular rate and rhythm without murmur Lungs clear Abdomen is soft, positive bowel sounds Extremities no cyanosis clubbing or edema Neurologic: Resting tremor noted, consistent with her Parkinson's. Discharge Data Data Completed and Pending: Completed Studies During Hospitalization Category Date Time Status CT head wo con* [id number] Stat Cat Scan 10/11/19 11:26 Completed XR chest 1V maddie ble [id number] Routine Exams 10/11/19 13:53 Completed CV carotid duplex BI* [id number] Routine Ultrasound 10/11/19 14:28 Completed CV echo complete* [id number] Routine Ultrasound 10/11/19 14:28 Completed Labs from last 24 hours 10/12/19 10/12/19 10/11/19 04:31 04:31 19:48 WBC 4.5 RBC 3.89 L Hgb 10.6 L Hct 34.5 L MCV 88.7 D MCH 27.2 L MCHC 30.7 RDW 13.9 Plt Count 160 MPV 9.7 Neut % (Auto) 54.5 Lymph % (Auto) 35.6 Mcdonald % (Auto) 6.4 Eos % (Auto) 2.9 Baso % (Auto) 0.4 Neut # (Auto) 2.5 Lymph # (Auto) 1.6 Mcdonald # (Auto) 0.3 Eos # (Auto) 0.1 Baso # (Auto) 0.0 Nucleated RBC % (a uto) 0 Nucleated RBCs # 0.0 PT INR APTT Sodium 141 Potassium 4.3 Chloride 106 Carbon Dioxide 25 Anion Gap 14.3 BUN 16 Creatinine 1.2 H Glucose 133 H POC Glucose 142 Calculated Osmolal ity 290 Calcium 9.8 Total Bilirubin AST ALT Alkaline Phosphata se Troponin I 6 Hour Troponin I Hi Sens Del Troponin T Baselin e Troponin T 120 Min [place] Troponin T Total Protein Albumin Globulin Urine Color Urine Appearance Urine pH Ur Specific Gravit y Urine Protein Urine Glucose (UA) Urine Ketones Urine Blood Urine Nitrate Urine Bilirubin Urine Urobilinogen Ur Leukocyte Ernestina ase Urine RBC Urine WBC Ur Squamous Epith Cells Urine Bacteria Hyaline Casts Urine Opiates Scre en Ur Barbiturates Sc reen Ur Phencyclidine S crn Ur Amphetamines Sc reen U Benzodiazepines Scrn Urine Cocaine Scre en U Marijuana (THC) Screen 10/11/19 10/11/19 10/11/19 17:56 16:57 15:02 WBC RBC Hgb Hct MCV MCH MCHC RDW Plt Count MPV Neut % (Auto) Lymph % (Auto) Mcdonald % (Auto) Eos % (Auto) Baso % (Auto) Neut # (Auto) Lymph # (Auto) Mcdonald # (Auto) Eos # (Auto) Baso # (Auto) Nucleated RBC % (a uto) Nucleated RBCs # PT INR APTT Sodium Potassium Chloride Carbon Dioxide Anion Gap BUN Creatinine Glucose POC Glucose 128 136 Calculated Osmolal ity Calcium Total Bilirubin AST ALT Alkaline Phosphata se Troponin I 6 Hour 29.22 H Troponin I Hi Sens Del 1.22 Troponin T Baselin e Troponin T 120 Min [place] Troponin T Total Protein Albumin Globulin Urine Color Urine Appearance Urine pH Ur Specific Gravit y Urine Protein Urine Glucose (UA) Urine Ketones Urine Blood Urine Nitrate Urine Bilirubin Urine Urobilinogen Ur Leukocyte Ernestina ase Urine RBC Urine WBC Ur Squamous Epith Cells Urine Bacteria Hyaline Casts Urine Opiates Scre en Ur Barbiturates Sc reen Ur Phencyclidine S crn Ur Amphetamines Sc reen U Benzodiazepines Scrn Urine Cocaine Scre en U Marijuana (THC) Screen 10/11/19 10/11/19 10/11/19 14:40 13:54 12:08 WBC RBC Hgb Hct MCV MCH MCHC RDW Plt Count MPV Neut % (Auto) Lymph % (Auto) Mcdonald % (Auto) Eos % (Auto) Baso % (Auto) Neut # (Auto) Lymph # (Auto) Mcdonald # (Auto) Eos # (Auto) Baso # (Auto) Nucleated RBC % (a uto) Nucleated RBCs # PT INR APTT Sodium Potassium Chloride Carbon Dioxide Anion Gap BUN Creatinine Glucose POC Glucose Calculated Osmolal ity Calcium Total Bilirubin AST ALT Alkaline Phosphata se Troponin I 6 Hour Troponin I Hi Sens Del Troponin T Baselin e 28 H Troponin T 120 Min [place] 30.38 H Delta Troponin T 5.38 Total Protein Albumin Globulin Urine Color Urine Appearance Urine pH Ur Specific Gravit y Urine Protein Urine Glucose (UA) Urine Ketones Urine Blood Urine Nitrate Urine Bilirubin Urine Urobilinogen Ur Leukocyte Ernestina ase Urine RBC Urine WBC Ur Squamous Epith Cells Urine Bacteria Hyaline Casts Urine Opiates Scre en Negative Ur Barbiturates Sc reen Negative Ur Phencyclidine S crn Negative Ur Amphetamines Sc reen Negative U Benzodiazepines Scrn Negative Urine Cocaine Scre en Negative U Marijuana (THC) Screen Negative 10/11/19 10/11/19 10/11/19 12:08 11:48 11:48 WBC RBC Hgb Hct MCV MCH MCHC RDW Plt Count MPV Neut % (Auto) Lymph % (Auto) Mcdonald % (Auto) Eos % (Auto) Baso % (Auto) Neut # (Auto) Lymph # (Auto) Mcdonald # (Auto) Eos # (Auto) Baso # (Auto) Nucleated RBC % (a uto) Nucleated RBCs # PT INR APTT Sodium 143 Potassium 4.1 Chloride 105 Carbon Dioxide 26 Anion Gap 16.1 BUN 21 Creatinine 1.3 H Glucose 131 H POC Glucose Calculated Osmolal ity 294 Calcium 9.8 Total Bilirubin 0.2 AST 19 ALT 12 Alkaline Phosphata se 82 Troponin I 6 Hour Troponin I Hi Sens Del Troponin T Baselin e 25 H Troponin T 120 Min [place] Troponin T Total Protein 6.8 Albumin 4.2 Globulin 2.6 Urine Color Yellow Urine Appearance Clear Urine pH 6 Ur Specific Gravit y 1.015 Urine Protein Neg Urine Glucose (UA) Norm Urine Ketones Negative Urine Blood Neg Urine Nitrate Negative Urine Bilirubin Neg Urine Urobilinogen Norm Ur Leukocyte Ernestina ase 1+ H Urine RBC None Urine WBC 5-10 H Ur Squamous Epith Cells 0-4 H Urine Bacteria 1+ H Hyaline Casts 0-4 H Urine Opiates Scre en Ur Barbiturates Sc reen Ur Phencyclidine S crn Ur Amphetamines Sc reen U Benzodiazepines Scrn Urine Cocaine Scre en U Marijuana (THC) Screen 10/11/19 10/11/19 11:48 11:48 WBC 4.8 RBC 3.92 L Hgb 11.2 L Hct 36.6 L MCV 93.4 MCH 28.6 MCHC 30.6 RDW 14.1 Plt Count 156 MPV 9.5 Neut % (Auto) 56.5 Lymph % (Auto) 30.5 Mcdonald % (Auto) 9.5 Eos % (Auto) 2.7 Baso % (Auto) 0.6 Neut # (Auto) 2.7 Lymph # (Auto) 1.5 Mcdonald # (Auto) 0.5 Eos # (Auto) 0.1 Baso # (Auto) 0.0 Nucleated RBC % (a uto) 0 Nucleated RBCs # 0.0 PT 12.60 INR 0.92 APTT 33.5 Sodium Potassium Chloride Carbon Dioxide Anion Gap BUN Creatinine Glucose POC Glucose Calculated Osmolal ity Calcium Total Bilirubin AST ALT Alkaline Phosphata se Troponin I 6 Hour Troponin I Hi Sens Del Troponin T Baselin e Troponin T 120 Min [place] Troponin T Total Protein Albumin Globulin Urine Color Urine Appearance Urine pH Ur Specific Gravit y Urine Protein Urine Glucose (UA) Urine Ketones Urine Blood Urine Nitrate Urine Bilirubin Urine Urobilinogen Ur Leukocyte Ernestina ase Urine RBC Urine WBC Ur Squamous Epith Cells Urine Bacteria Hyaline Casts Urine Opiates Scre en Ur Barbiturates Sc reen Ur Phencyclidine S crn Ur Amphetamines Sc reen U Benzodiazepines Scrn Urine Cocaine Scre en U Marijuana (THC) Screen Vitals: Last Vital Signs Temp 98.1 F 10/12/19 07:27 Pulse 55 L 10/12/19 07:27 Resp 18 10/12/19 07:27 BP 197/77 10/12/19 07:27 Pulse Ox 94 10/12/19 07:27 Discharge Plan Discharge Patient Disposition: Xfer SNF Condition: Stable Prescriptions: New atorvastatin 40 mg Tablet 80 mg PO DAILY Qty: 60 RF: 0 aspirin 325 mg Tablet,Delayed Release (Dr/Ec) 325 mg PO DAILY Qty: 30 RF: 0 Continued Seroquel 25 mg Tablet 25 mg PO DAILY RF: 0 pramipexole 1 mg Tablet 1 mg PO QID RF: 0 metformin 500 mg Tablet 500 mg PO DAILY RF: 0 carbidopa-levodopa 50-200 mg Tablet Extended Release 1 tab PO DAILY RF: 0 clopidogrel 75 mg Tablet 75 mg PO DAILY RF: 0 amlodipine 5 mg Tablet 7.5 mg PO DAILY RF: 0 glipizide 2.5 mg Tablet Extended Release 24hr 2.5 mg PO DAILY RF: 0 gabapentin 300 mg Capsule 300 mg PO BID RF: 0 atenolol 50 mg Tablet 50 mg PO DAILY RF: 0 Tylenol 325 mg Capsule 650 mg PO QID PRN (Reason: Pain) RF: 0 Thera-M 9 mg iron-400 mcg Tablet 1 tab PO DAILY RF: 0 [place]-3 350 mg-235 mg- 90 mg-597 mg Capsule,Delayed Release(Dr/Ec) 1 cap PO DAILY RF: 0 Discontinued atorvastatin 40 mg Tablet 40 mg PO DAILY RF: 0 aspirin 81 mg Tablet,Chewable 81 mg PO DAILY RF: 0 Discharge Orders: Discharge Order (Routine); Ordered 10/12/19 Ordered By: Kalpesh Gaviria Referrals: Surendra Matute [Family Provider] - 4-7 days Discharge Diet: Diabetic Discharge Activity: Resume usual activity Activity Restrictions/Additional Instructions: Take all medicine as prescribed. No doses have changed for Lipitor, aspirin. Discharge Attestations Time Spent in Discharge Care*: greater than 30 min Quality Metrics Clinical Quality Measures During this hospital stay, did patient experience: Stroke Contraindication to Antithrombotic: Antithrombotic prescribed Contraindication to Anticoagulation: Overlap treatment not indicated Contraindication to Statin: Statin prescribed Coding Level of Care Code Acute Vice President Of Instruction for [employer]ing Fwd Diagnoses Acute CVA (cerebrovascular accident) I63.9 Elevated troponin R79.89 Anemia D64.9
[2019-10-12 10:45] VITALS: BP 197/77; PULSE 55; RESP 18; TEMP 36.7; O2SAT 94
[2019-10-12 11:14] VITALS: BP 171/72; PULSE 77; RESP 18; TEMP 37.1; O2SAT 90
[2019-10-12 11:24] LABS: Glucose Point of Care 140 mg/dL (70-110)
== END 2019-10-12 12:04 | disposition skilled nursing facility (03) ==
LOC: ER 12:49 → MEDSURG 17:21
PROVIDERS: Admitting Provider Internal Medicine; Emergency Provider Family Medicine; Family Provider Physician Assistant Medical; Visit Provider Internal Medicine
DX: I63.9 Cerebral infarction, unspecified (principal); R79.89 Other specified abnormal findings of blood chemistry; D64.9 Anemia, unspecified; G31.83 Neurocognitive disorder with Lewy bodies; F02.80 Dementia in other diseases classified elsewhere, unspecified severity, without behavioral disturbance, psychotic disturbance, mood disturbance, and anxiety; I25.10 Atherosclerotic heart disease of native coronary artery without angina pectoris; E11.22 Type 2 diabetes mellitus with diabetic chronic kidney disease; I12.9 Hypertensive chronic kidney disease with stage 1 through stage 4 chronic kidney disease, or unspecified chronic kidney disease; N18.2 Chronic kidney disease, stage 2 (mild); E78.5 Hyperlipidemia, unspecified; E11.40 Type 2 diabetes mellitus with diabetic neuropathy, unspecified; Z79.82 Long term (current) use of aspirin; Z79.84 Long term (current) use of oral hypoglycemic drugs; Z87.891 Personal history of nicotine dependence
CPT/HCPCS: 12345; 36415; 36416; 70450; 71045; 80048; 80053; 80307; 81001; 82962; 84484; 85025; 85610; 85730; 93005; 93306; 93880; 96360; 96361; 96372; 96374; 97110; 97116; 97162; 97165; 97535; 99283; 99285; G0378; J0696; J1650; J7030

== ENCOUNTER 2020-01-23 14:01 | Emergency (ER) | payer MEDICARE, OTHER, SELFPAY ==
[2020-01-23 14:03] VITALS: BP 198/66; PULSE 73; RESP 18; TEMP 36.6; O2SAT 95; BMI 25.6
--- NOTE | 2020-01-23 14:34 | XRR_ITS ---
PROCEDURE INFORMATION: Exam: XR Chest, 1 View Exam date and time: 01/23/2020 2:35 PM Age: 79 years old Clinical indication: Other: AMS; Additional info: Altered mental status TECHNIQUE: Imaging protocol: XR of the chest Views: 1 view. COMPARISON: CR XR chest 1V portable [id number] 10/11/2019 1:54 PM FINDINGS: Lungs: Unremarkable. No consolidation. Pleural space: Unremarkable. No pleural effusion. No pneumothorax. Heart/Mediastinum: Unremarkable. No cardiomegaly. Bones/joints: Unremarkable. XR/XR chest 1V portable [id number] IMPRESSION: No acute findings.
--- NOTE | 2020-01-23 14:51 | ED_ITS ---
HPI - Psych General: Chief Complaint: Psychiatric Symptoms Stated Complaint: HALLUCINATIONS Time Seen by Provider: 01/23/20 14:23 Source: EMS Mode of arrival: EMS Limitations: altered mental status History of Present Illness: HPI Narrative: 79-year-old female patient who is a resident [facility] a [facility] with a history of Lewy body dementia with hallucinations was sent to the emergency department with complaints of hallucinations. No other complaints by the nursing staff. Patient has severe dementia and is unable to give me an accurate history. Review of Systems General: Reports: ROS unobtainable due to mental status (Dementia) PFS ED PFSH: Medical History Anemia Stable CAD (coronary artery disease) Carotid artery disease Chronic kidney disease (CKD) CVA (cerebral vascular accident) Dementia Diabetes Hyperlipidemia Hypertension Parkinson disease Peripheral neuropathy Surgical History History of left-sided carotid endarterectomy Family History Other Stroke Social History Smoking and tobacco status: never smoked Alcohol intake: never Physical Exam Const: COMMON NORMALS: no acute distress, average body habitus, no limitations, healthy appearing, alert and well nourished HENMT: COMMON NORMALS: normocephalic, atraumatic and moist oral mucous membranes HEAD & SCALP: normocephalic and atraumatic Neck/C-Spine: COMMON NORMALS: no meningeal signs and no JVD Resp: COMMON NORMALS: normal respiratory effort, No retractions, No use of accessory muscles, clear to auscultation bilaterally and percussion normal AUSCULTATION: clear to auscultation bilaterally PERCUSSION: percussion normal Cardio: COMMON NORMALS: no JVD, regular rate, regular rhythm, S1 normal heart sound present, S2 normal heart sound present, No gallops present (Cardio), No clicks present (Cardio), No murmurs present (Cardio), No rub (Cardio) and Peripheral pulses 2+ throughout RATE: regular rate RHYTHM: regular rhythm HEART SOUNDS: S1 normal heart sound present and S2 normal heart sound present PERIPHERAL PULSES: Peripheral pulses 2+ throughout GI: COMMON NORMALS: Normal to inspection, nondistended, normoactive bowel sounds present, Soft to palpation, non-tender, No hepatosplenomegaly present, no masses and no bruits PALPATION: Yes Soft to palpation and Yes No hepatosplenomegaly present : COMMON NORMALS: Yes no CVA tenderness BLADDER/KIDNEY EXAM: Yes no CVA tenderness Back/Pelvis: COMMON NORMALS: no CVA tenderness Extremity: COMMON NORMALS: normal to inspection, full ROM, capillary refill normal, no calf tenderness and no pedal edema Neuro: SENSORIUM/ORIENTATION: Yes alert and Yes Orientation impaired MENINGEAL SIGNS: Yes no meningeal signs Skin: COMMON NORMALS: no rashes or lesions noted, no wounds, turgor normal, no jaundice, no petechiae and no mottling GENERAL SKIN EXAM: no rashes or lesions noted and turgor normal MDM - Psych MDM Narrative: Medical decision making narrative: 79-year-old [facility] resident with a history of dementia presents to the emergency department after [facility] staff said she was having hallucinations. Evaluation in the emergency department only revealed a UTI. Her son arrived in the emergency department and said the patient was at her baseline. She was given a dose of IV ceftriaxone and discharged on oral antibiotic. Medical Records: Attestation: I reviewed the patient's medical records. Lab Data: Attestation: I reviewed the patient's lab results. Labs: Lab Results 01/23/20 01/23/20 01/23/20 Range/Units 14:20 14:20 15:13 WBC 4.4 (4.0-10.0) 10^3/ uL RBC 4.35 (4.1-5.3) 10^6/u L Hgb 11.9 (11.5-15.3) g/dL Hct 39.0 (37.0-47.0) % MCV 89.7 (81-99) fL MCH 27.4 L (28.0-34.0) pg MCHC 30.5 (30.0-36.0) g/dL RDW 14.0 (12.1-15.1) % Plt Count 177 (130-400) 10^3/c mm MPV 9.8 (7.4-10.4) fL Neut % (Auto) 67.0 % Lymph % (Auto) 23.2 % [place] % (Auto) 7.7 % Eos % (Auto) 1.4 % Baso % (Auto) 0.5 % Neut # (Auto) 3.0 (1.8-7.7) 10^3/u L Lymph # (Auto) 1.0 (0.8-4.8) 10^3/u L [place] # (Auto) 0.3 (0.2-0.9) 10^3/u L Eos # (Auto) 0.1 (0.0-0.8) 10^3/u L Baso # (Auto) 0.0 (0.0-0.1) 10^3/u L Nucleated RBC % (a uto) 0 % Nucleated RBCs # 0.0 /100WBC Sodium (136-145) mmol/L Potassium (3.5-5.1) mmol/L Chloride (98-107) mmol/L Carbon Dioxide (22-29) mmol/L Anion Gap (5-19) BUN (8-23) mg/dL Creatinine (0.5-0.9) mg/dL Glucose (65-115) mg/dL Calculated Osmolal ity (285-295) mOsm/k g Calcium (8.5-10.5) mg/dL Total Bilirubin (0.15-1.2) mg/dL AST (0-32) U/L ALT (0-33) U/L Alkaline Phosphata se (35-105) IU/L Troponin T Baselin e (0-10) ng/L Troponin T 120 Min yanira (0-10) ng/L Delta Troponin T (0-10) ABS# C-Reactive Protein (0.0-4.9) mg/L NT-Pro-B Natriuret Pep (0-450) pg/mL Total Protein (6.6-8.7) g/dL Albumin (3.5-5.2) g/dL Globulin (1.3-4.6) g/dL Lipase (13-60) U/L TSH (0.27-4.20) uIU/ mL Urine Color Yellow (Yellow) Urine Appearance Hazy A (CLEAR) Urine pH 7 (5-7) Ur Specific Gravit y 1.005 (1.005-1.030) Urine Protein Neg (Negative) Urine Glucose (UA) Norm (Normal) Urine Ketones Negative (Negative) Urine Blood Neg (Negative) Urine Nitrate Positive H (Negative) Urine Bilirubin Neg (NEGATIVE) Urine Urobilinogen Norm (Negative) mg/dL Ur Leukocyte Ernestina ase 2+ H (Negative) Urine RBC None (0-2) /hpf Urine WBC 10-15 H (0-5) /hpf Ur Squamous Epith Cells None (0-5) Amorphous Sediment 1+ Urine Bacteria 1+ H (NONE) Urine Opiates Scre en Negative (Negative) ng/mL Ur Barbiturates Sc reen Negative (Negative) ng/mL Ur Phencyclidine S crn Negative (Negative) ng/mL Ur Amphetamines Sc reen Negative (Negative) ng/mL U Benzodiazepines Scrn Negative (Negative) ng/mL Urine Cocaine Scre en Negative (Negative) ng/mL U Marijuana (THC) Screen Negative (Negative) ng/mL 01/23/20 01/23/20 01/23/20 Range/Units 15:13 15:13 17:05 WBC (4.0-10.0) 10^3/ uL RBC (4.1-5.3) 10^6/u L Hgb (11.5-15.3) g/dL Hct (37.0-47.0) % MCV (81-99) fL MCH (28.0-34.0) pg MCHC (30.0-36.0) g/dL RDW (12.1-15.1) % Plt Count (130-400) 10^3/c mm MPV (7.4-10.4) fL Neut % (Auto) % Lymph % (Auto) % [place] % (Auto) % Eos % (Auto) % Baso % (Auto) % Neut # (Auto) (1.8-7.7) 10^3/u L Lymph # (Auto) (0.8-4.8) 10^3/u L [place] # (Auto) (0.2-0.9) 10^3/u L Eos # (Auto) (0.0-0.8) 10^3/u L Baso # (Auto) (0.0-0.1) 10^3/u L Nucleated RBC % (a uto) % Nucleated RBCs # /100WBC Sodium 144 (136-145) mmol/L Potassium 4.5 (3.5-5.1) mmol/L Chloride 104 (98-107) mmol/L Carbon Dioxide 27 (22-29) mmol/L Anion Gap 17.5 (5-19) BUN 17 (8-23) mg/dL Creatinine 1.2 H (0.5-0.9) mg/dL Glucose 166 H (65-115) mg/dL Calculated Osmolal ity 298 H (285-295) mOsm/k g Calcium 10.1 (8.5-10.5) mg/dL Total Bilirubin 0.4 (0.15-1.2) mg/dL AST 18 (0-32) U/L ALT 17 (0-33) U/L Alkaline Phosphata se 94 (35-105) IU/L Troponin T Baselin e 22 H (0-10) ng/L Troponin T 120 Min yanira 21.24 H (0-10) ng/L Delta Troponin T -0.76 L (0-10) ABS# C-Reactive Protein 0.8 (0.0-4.9) mg/L NT-Pro-B Natriuret Pep 3012 H (0-450) pg/mL Total Protein 7.1 (6.6-8.7) g/dL Albumin 4.3 (3.5-5.2) g/dL Globulin 2.8 (1.3-4.6) g/dL Lipase 20 (13-60) U/L TSH 2.84 (0.27-4.20) uIU/ mL Urine Color (Yellow) Urine Appearance (CLEAR) Urine pH (5-7) Ur Specific Gravit y (1.005-1.030) Urine Protein (Negative) Urine Glucose (UA) (Normal) Urine Ketones (Negative) Urine Blood (Negative) Urine Nitrate (Negative) Urine Bilirubin (NEGATIVE) Urine Urobilinogen (Negative) mg/dL Ur Leukocyte Ernestina ase (Negative) Urine RBC (0-2) /hpf Urine WBC (0-5) /hpf Ur Squamous Epith Cells (0-5) Amorphous Sediment Urine Bacteria (NONE) Urine Opiates Scre en (Negative) ng/mL Ur Barbiturates Sc reen (Negative) ng/mL Ur Phencyclidine S crn (Negative) ng/mL Ur Amphetamines Sc reen (Negative) ng/mL U Benzodiazepines Scrn (Negative) ng/mL Urine Cocaine Scre en (Negative) ng/mL U Marijuana (THC) Screen (Negative) ng/mL Imaging Data^: CXR: Radiologist's impression: [facility] [address] [place] [address] XRay Report Signed Patient: Ghazala Crawford #: [id number] : 1940Acct#:[id number] Age/Sex: 79 / FADM Date: 01/23/20 Loc: ERRoom/Bed: Attending Dr: Ordering Provider/Ordering MD: Aaron Mcg[place] [facility] [place] of Service: 01/23/20 Procedure(s): XR chest 1V portable [id number] Accession Number(s): [id number] Report Number: [id number] PROCEDURE INFORMATION: Exam: XR Chest, 1 View Exam date and time: 01/23/2020 2:35 PM Age: 79 years old Clinical indication: Other: AMS; Additional info: Altered mental status TECHNIQUE: Imaging protocol: XR of the chest Views: 1 view. COMPARISON: CR XR chest 1V portable [id number] 10/11/2019 1:54 PM FINDINGS: Lungs: Unremarkable. No consolidation. Pleural space: Unremarkable. No pleural effusion. No pneumothorax. Heart/Mediastinum: Unremarkable. No cardiomegaly. Bones/joints: Unremarkable. XR/XR chest 1V portable [id number] IMPRESSION: No acute findings. Dictated By:Grady Barillas Signed By:Dioni Barillas Date/Time:01/23/20 1510 DD/ 1508 Discharge Plan Discharge Patient Disposition: Home, Self-Care Clinical Impression: Acute cystitis Qualifiers: Hematuria presence: without hematuria Qualified Code(s): N30.00 - Acute cystitis without hematuria Condition: Stable Prescriptions: New Macrobid 100 mg capsule 100 mg PO BID 7 Days Qty: 14 RF: 0 Continued tramadol 50 mg Tablet 50 mg PO Q4H PRN (Reason: Pain) RF: 0 Risperdal 0.5 mg Tablet 0.5 mg PO DAILY RF: 0 glipizide 2.5 mg Tablet Extended Release 24hr 2.5 mg PO DAILY RF: 0 quetiapine [Seroquel] 25 mg Tablet 25 mg PO DAILY RF: 0 pramipexole 1 mg Tablet 1 mg PO QID RF: 0 metformin 500 mg Tablet 500 mg PO DAILY RF: 0 carbidopa-levodopa 50-200 mg Tablet Extended Release 1 tab PO DAILY RF: 0 clopidogrel 75 mg Tablet 75 mg PO DAILY RF: 0 amlodipine 5 mg Tablet 7.5 mg PO DAILY RF: 0 gabapentin 300 mg Capsule 300 mg PO TID RF: 0 atenolol 50 mg Tablet 50 mg PO DAILY RF: 0 acetaminophen [Tylenol] 325 mg Capsule 650 mg PO QID PRN (Reason: Pain) RF: 0 Thera-M 9 mg iron-400 mcg Tablet 1 tab PO DAILY RF: 0 Laughlin-3 350 mg-235 mg- 90 mg-597 mg Capsule,Delayed Release(Dr/Ec) 1 cap PO DAILY RF: 0 atorvastatin 40 mg Tablet 80 mg PO DAILY Qty: 60 RF: 0 aspirin 325 mg Tablet,Delayed Release (Dr/Ec) 325 mg PO DAILY Qty: 30 RF: 0 Discharge Orders: Discharge Order (Routine); Ordered 01/23/20 Ordered By: Aaron Mcghee Referrals: Surendra Matute [Primary Care Provider] - 4-7 days Patient Instructions: Urinary Tract Infection in Women (ED) Activity Restrictions/Additional Instructions: Return for any new or worsening symptoms. Follow up with your primary care provider within one week. Take the antibiotic as prescribed. Discharge Date/Time: 01/23/20 17:42 Coding Level of Care Code ED Medical Office Technology Instructor for Dhruv Fwd Exam Comprehensive
[2020-01-23 14:56] LABS: Add Urine Microscopic? YES; Bilirubin Urine Neg (NEGATIVE); Blood Urine Neg (Negative); Glucose Urine UA Norm (Normal); Ketones Urine Negative (Negative); Leukocyte Esterase Urine 2+ (Negative); Nitrate Urine Positive (Negative); Protein Urine Neg (Negative); Specific Gravity, Urine 1.005 (1.005-1.030); Urine Appearance Hazy (CLEAR); Urine Color Yellow (Yellow); Urobilinogen Urine Norm (Negative); pH Urine 7 (5-7)
[2020-01-23 15:05] LABS: Amphetamines Screen Urine Negative (Negative); Barbiturates Screen Urine Negative (Negative); Benzodiazepines Screen Urine Negative (Negative); Cocaine Screen Urine Negative (Negative); Opiate Screen Urine Negative (Negative); PCP Screen Urine Negative (Negative); THC Screen Urine Negative (Negative)
[2020-01-23 15:09] LABS: Bacteria Urine 1+
[2020-01-23 15:10] LABS: Add Urine Culture? Yes; Amorphous Sediment Urine 1+
[2020-01-23 15:18] LABS: Basophils % 0.5 %; Eosinophils # 0.1 10^3/uL (0.0-0.8); Eosinophils % 1.4 %; Hemoglobin 11.9 g/dL (11.5-15.3); Lymphocytes % 23.2 %; Mean Corpuscular HGB Conc 30.5 g/dL (30.0-36.0); Mean Corpuscular Hemoglobin 27.4 pg (28.0-34.0); Mean Corpuscular Volume 89.7 fL (81-99); Mean Platelet Volume 9.8 fL (7.4-10.4); Monocytes # 0.3 10^3/uL (0.2-0.9); Monocytes % 7.7 %; Nucleated Red Blood Cells % 0 %; Platelet Count 177 10^3/cmm (130-400); Red Blood Count 4.35 10^6/uL (4.1-5.3); White Blood Count 4.4 10^3/uL (4.0-10.0)
[2020-01-23 15:38] LABS: Troponin(5th) Baseline 22 ng/L (0-10)
[2020-01-23 15:44] LABS: Alanine Aminotransferase 17 U/L (0-33); Albumin Level 4.3 g/dL (3.5-5.2); Alkaline Phosphatase 94 IU/L (35-105); Anion Gap 17.5 (5-19); Aspartate Amino Transferase 18 U/L (0-32); Blood Urea Nitrogen 17 mg/dL (8-23); C Reactive Protein 0.8 mg/L (0.0-4.9); Calcium 10.1 mg/dL (8.5-10.5); Carbon Dioxide 27 mmol/L (22-29); Chloride 104 mmol/L (98-107); Globulin 2.8 g/dL (1.3-4.6); Glucose 166 mg/dL (65-115); Lipase 20 U/L (13-60); NT Pro B Type Natriuretic Pept 3012 pg/mL (0-450); Osmolality Calculated 298 mOsm/kg (285-295); Potassium 4.5 mmol/L (3.5-5.1); Sodium 144 mmol/L (136-145); Thyroid Stimulating Hormone 2.84 uIU/mL (0.27-4.20); Total Bilirubin 0.4 mg/dL (0.15-1.2); Total Protein 7.1 g/dL (6.6-8.7)
[2020-01-23 16:00] VITALS: BP 175/84; PULSE 75; O2SAT 94
[2020-01-23] MEDS: cefTRIAXone 1,000 MG in sodium chloride 0.9% (plus) 50 ML 100 MG IV (16:11)
--- NOTE | 2020-01-23 16:15 | PC.NURSE ---
Pt assisted to BSC with assist x2. Pt then helped back to bed.
--- NOTE | 2020-01-23 16:35 | ECG_ITS ---
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 Measurements Intervals [place] Rate: 70 P: 69 AK: 192 QRS: -11 QRSD: 92 T: 152 QT: 426 QTc: 462 Interpretive Statements SINUS RHYTHM ST DEVIATION AND MODERATE T-WAVE ABNORMALITY, CONSIDER LATERAL ISCHEMIA [-0.1+ mV T WAVE IN I/aVL/V5/V6] Compared to ECG 10/11/2019 20:50:14 Sinus bradycardia no longer present T-wave abnormality still present Possible ischemia still present Electronically Signed On 01-24-2020 18:39:59 CDT by Demi Jalloh M.D. [id number]
[2020-01-23 17:25] LABS: Troponin 5 2HR 21.24 ng/L (0-10)
[2020-01-23 17:42] VITALS: BP 185/77; PULSE 75; O2SAT 94
[2020-01-23 17:49] LABS: Troponin 5 2HR Delta -0.76 ABS# (0-10)
== END 2020-01-23 17:42 | disposition home or self-care (01) ==
PROVIDERS: Emergency Provider Family Medicine; PCP Physician Assistant Medical
DX: N30.00 Acute cystitis without hematuria (principal); Z79.84 Long term (current) use of oral hypoglycemic drugs; Z79.02 Long term (current) use of antithrombotics/antiplatelets; Z79.82 Long term (current) use of aspirin; I25.10 Atherosclerotic heart disease of native coronary artery without angina pectoris; Z86.73 Personal history of transient ischemic attack (TIA), and cerebral infarction without residual deficits; G31.83 Neurocognitive disorder with Lewy bodies; F02.80 Dementia in other diseases classified elsewhere, unspecified severity, without behavioral disturbance, psychotic disturbance, mood disturbance, and anxiety; E78.5 Hyperlipidemia, unspecified; I10 Essential (primary) hypertension; G20 Parkinson's disease; E11.42 Type 2 diabetes mellitus with diabetic polyneuropathy
CPT/HCPCS: 12345; 36415; 71045; 80053; 80306; 81001; 83690; 83880; 84443; 84484; 85025; 86140; 87077; 87086; 87186; 93005; 96365; 99284; J0696

== ENCOUNTER 2020-01-29 17:07 | Emergency (ER) | payer MEDICARE, OTHER, MEDICAID, SELFPAY ==
[2020-01-29 17:08] VITALS: BMI 27.4
[2020-01-29 17:15] VITALS: BP 168/80; PULSE 65; RESP 20; TEMP 36.6; O2SAT 98
--- NOTE | 2020-01-29 17:35 | PC.NURSE ---
EKG done at 1735 and shown to ER doctor
[2020-01-29 17:47] VITALS: BP 168/72; PULSE 76; RESP 12; O2SAT 100
--- NOTE | 2020-01-29 18:12 | XRR_ITS ---
PROCEDURE INFORMATION: Exam: XR Chest, 1 View Exam date and time: 01/29/2020 6:13 PM Age: 79 years old Clinical indication: Dyspnea; Additional info: AMS TECHNIQUE: Imaging protocol: XR of the chest Views: 1 view. COMPARISON: CR (CHEST, ) 01/23/2020 2:51 PM FINDINGS: Lungs: Unremarkable. No consolidation. Pleural space: Unremarkable. No pleural effusion. No pneumothorax. Heart/Mediastinum: There is borderline cardiomegaly. Vasculature: The aortic arch is slightly calcified and tortuous. Bones/joints: Unremarkable. XR/XR chest 1V portable [id number] IMPRESSION: No acute findings.
--- NOTE | 2020-01-29 18:12 | CTR_ITS ---
PROCEDURE INFORMATION: Exam: CT Head Without Contrast Exam date and time: 01/29/2020 6:13 PM Age: 79 years old Clinical indication: Altered mental status/memory loss; Patient HX: AMS. Increased confusion and aggression. History of prior stroke. TECHNIQUE: Imaging protocol: Computed tomography of the head without contrast. Radiation optimization: All CT scans at this facility use at least one of these dose optimization techniques: automated exposure control; mA and/or kV adjustment per patient size (includes targeted exams where dose is matched to clinical indication); or iterative reconstruction. COMPARISON: CT head wo con* [id number] 10/11/2019 11:48 AM RADIATION DOSE METRICS: Total DLP (mGy-cm): 752.49 FINDINGS: Brain: There is volume loss. There is an old left frontal temporal cortical infarct. No acute infarct is identified. There is no hemorrhage or extra-axial collection. There is no mass. Ventricles: There is no hydrocephalus. Bones/joints: Unremarkable. No acute fracture. Sinuses: Visualized sinuses are unremarkable. No fluid levels. Mastoid air cells: Visualized mastoid air cells are well aerated. Soft tissues: Unremarkable. CT/CT head wo con* [id number] IMPRESSION: 1. Old left frontal temporal infarct. 2. No acute intracranial lesion or injury and no change from prior scan. Radiation Dose CTDIVOL = (mGy): DLP = 752.49 (mGy-cm)
[2020-01-29 18:18] LABS: Add Urine Microscopic? NO
--- NOTE | 2020-01-29 18:25 | ECG_ITS ---
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 Measurements Intervals [employer] Rate: 79 P: 74 MD: 206 QRS: -34 QRSD: 89 T: 132 QT: 392 QTc: 451 Interpretive Statements SINUS RHYTHM LEFT AXIS DEVIATION [QRS AXIS < -30] PROBABLE INFERIOR MYOCARDIAL INFARCTION , PROBABLY OLD [35 ms Q WAVE IN II/aVF] MODERATE T-WAVE ABNORMALITY, CONSIDER LATERAL ISCHEMIA [-0.1+ mV T WAVE IN I/aVL/V5/V6] Compared to ECG 01/23/2020 16:56:54 Left-axis deviation now present Myocardial infarct finding now present T-wave abnormality still present Possible ischemia still present Electronically Signed On 01-30-2020 15:12:02 CDT by Quincy Tipton M.D. [id number]
[2020-01-29 18:26] LABS: Bilirubin Urine Neg (NEGATIVE); Blood Urine Neg (Negative); Glucose Urine UA Norm (Normal); Ketones Urine Negative (Negative); Leukocyte Esterase Urine Negative (Negative); Nitrate Urine Negative (Negative); Protein Urine Neg (Negative); Urine Appearance Clear (CLEAR); Urine Color Yellow (Yellow); Urobilinogen Urine Norm (Negative); pH Urine 5 (5-7)
[2020-01-29 18:45] LABS: Basophils % 0.9 %; Eosinophils # 0.1 10^3/uL (0.0-0.8); Eosinophils % 1.7 %; Hematocrit 39.2 % (37.0-47.0); Hemoglobin 11.9 g/dL (11.5-15.3); Lymphocytes # 1.4 10^3/uL (0.8-4.8); Lymphocytes % 30.3 %; Mean Corpuscular HGB Conc 30.4 g/dL (30.0-36.0); Mean Corpuscular Hemoglobin 27.2 pg (28.0-34.0); Mean Corpuscular Volume 89.5 fL (81-99); Monocytes # 0.4 10^3/uL (0.2-0.9); Monocytes % 9.2 %; Neutrophils # 2.7 10^3/uL (1.8-7.7); Neutrophils % 57.7 %; Nucleated Red Blood Cells % 0 %; Platelet Count 173 10^3/cmm (130-400); Red Blood Count 4.38 10^6/uL (4.1-5.3); Red Cell Distribution Width 13.8 % (12.1-15.1); White Blood Count 4.6 10^3/uL (4.0-10.0)
[2020-01-29 19:00] LABS: Lactate (Lactic Acid level) 1.1 mmol/L (0.5-2.2)
[2020-01-29 19:07] LABS: Procalcitonin 0.07 ng/mL (0-0.5); Thyroid Stimulating Hormone 1.19 uIU/mL (0.27-4.20)
[2020-01-29 19:18] LABS: Alanine Aminotransferase 13 U/L (0-33); Albumin Level 4.4 g/dL (3.5-5.2); Alkaline Phosphatase 88 IU/L (35-105); Anion Gap 19.4 (5-19); Aspartate Amino Transferase 21 U/L (0-32); Blood Urea Nitrogen 43 mg/dL (8-23); C Reactive Protein 0.3 mg/L (0.0-4.9); Carbon Dioxide 25 mmol/L (22-29); Chloride 101 mmol/L (98-107); Creatinine Clr Calc Pharmacy 31.2079; Globulin 2.7 g/dL (1.3-4.6); Glucose 118 mg/dL (65-115); Osmolality Calculated 291 mOsm/kg (285-295); Potassium 4.4 mmol/L (3.5-5.1); Sodium 141 mmol/L (136-145); Total Bilirubin 0.4 mg/dL (0.15-1.2); Total Protein 7.1 g/dL (6.6-8.7)
[2020-01-29] MEDS: sodium chloride 0.9% 500 ML IV (19:50)
--- NOTE | 2020-01-29 21:08 | CTR_ITS ---
PROCEDURE INFORMATION: Exam: CT Angiography Chest With Contrast Exam date and time: 01/29/2020 9:25 PM Age: 79 years old Clinical indication: Abnormal findings; Abnormal diagnostic tests; Shortness of breath; Patient HX: Hypoxic on room air. Elevated d-dimer. Patient unable to keep arms above head or follow breathing instructions. ; Additional info: Hypoxia TECHNIQUE: Imaging protocol: Computed tomographic angiography of the chest with intravenous contrast. 3D rendering: MIP and/or 3D reconstructed images were created by the technologist. Radiation optimization: All CT scans at this facility use at least one of these dose optimization techniques: automated exposure control; mA and/or kV adjustment per patient size (includes targeted exams where dose is matched to clinical indication); or iterative reconstruction. Contrast material: VISI 320; Contrast volume: 53 ml; Contrast route: INTRAVENOUS (IV); COMPARISON: CR (CHEST, ) 01/29/2020 6:22 PM RADIATION DOSE METRICS: Total DLP (mGy-cm): 519.01 FINDINGS: Pulmonary arteries: No evidence of of pulmonary artery emboli. Aorta: No thoracic aortic aneurysm . Is no there is Thyroid: There are multiple thyroid nodules. The largest is on the right measuring 17 mm. Lungs: There is centrilobular emphysema more extensive in the upper lobes. There is minor linear atelectasis or fibrosis at the lung bases. No consolidation. There is a left lower lobe calcified granuloma. Series 3, image 12, 2 mm right upper lobe nodule. Image 14 3 mm right upper lobe nodule. Image 32, 5 mm right upper lobe perifissural nodule. No consolidation. Pleural space: Unremarkable. No pneumothorax. No pleural effusion. Heart: There is cardiomegaly. There are coronary artery calcifications. Lymph nodes: There are calcified mediastinal lymph nodes. Bones/joints: There are degenerative changes of the thoracic spine. There is an L1 compression fracture with 40% loss of height and mild retropulsion. No significant compromise of the spinal canal. Soft tissues: Unremarkable. CT/CT angio chest PE protcl [id number] IMPRESSION: 1. No evidence of pulmonary artery emboli. 2. No thoracic aortic aneurysm. 3. Small right upper lobe nodules measuring up to 5 mm. Twelve month follow-up recommended only if patient is considered high risk as per Fleischner protocol. 4. Centrilobular emphysema. 5. Old granulomatous disease. No acute disease. 6. Moderate L1 compression fracture of uncertain age. 7. Thyroid nodules measuring up to 17 mm. Thyroid ultrasound recommended. COMMENTS: Consistent with the [employer]'s Incidental Findings Committee white paper (J Am Stephen Radiol 2015): In patients aged 35 years and older with an incidental thyroid nodule equal to or greater than 1.[address], MRI or extrathyroidal US, further evaluation with dedicated thyroid US is recommended for patients with normal life expectancy and without comorbidities. For smaller nodules without suspicious features, no further evaluation or follow up is recommended. Radiation Dose CTDIVOL = (mGy): DLP = 519.01 (mGy-cm)
[2020-01-29 21:32] LABS: Troponin T (5th) Once 25 ng/L (0-10)
[2020-01-29] MEDS: LORazepam 2 mg/mL INJ 1 mL 1 MG IVP (22:05)
[2020-01-29] MEDS: iodixanol 320 mg/mL 100mL Btl IV (22:10)
--- NOTE | 2020-01-29 22:12 | PC.NURSE ---
vo obtained for ativan due to pt's increased combativeness and confusion during CT
[2020-01-29 22:34] LABS: Troponin 5 2HR 24.61 ng/L (0-10)
[2020-01-29 22:37] LABS: Troponin 5 2HR Delta -0.4 ABS# (0-10)
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
[2020-01-30 03:06] VITALS: BP 133/81; PULSE 79; RESP 18; O2SAT 99
--- NOTE | 2020-01-30 03:34 | PC.NURSE ---
i agree with this assessment
== END 2020-01-30 03:34 ==
PROVIDERS: Emergency Provider Family Medicine; PCP Physician Assistant Medical
DX: G20 Parkinson's disease (principal); F02.81 Dementia in other diseases classified elsewhere, unspecified severity, with behavioral disturbance; Z79.84 Long term (current) use of oral hypoglycemic drugs; Z79.02 Long term (current) use of antithrombotics/antiplatelets; Z79.82 Long term (current) use of aspirin; I25.10 Atherosclerotic heart disease of native coronary artery without angina pectoris; Z86.73 Personal history of transient ischemic attack (TIA), and cerebral infarction without residual deficits; E78.5 Hyperlipidemia, unspecified; I10 Essential (primary) hypertension; F02.80 Dementia in other diseases classified elsewhere, unspecified severity, without behavioral disturbance, psychotic disturbance, mood disturbance, and anxiety; E11.42 Type 2 diabetes mellitus with diabetic polyneuropathy
CPT/HCPCS: 12345; 36415; 70450; 71045; 71275; 80053; 81003; 83605; 84145; 84443; 84484; 85025; 86140; 93005; 96361; 96374; 96375; 99282; 99284; J2060; J7040; Q9967

== ENCOUNTER 2020-02-01 23:05 | Emergency (ER) | payer MEDICARE, OTHER, MEDICAID, SELFPAY ==
[2020-02-01 23:06] VITALS: BP 160/56; PULSE 59; RESP 14; TEMP 36.8; O2SAT 92; BMI 30.9
--- NOTE | 2020-02-01 23:14 | XRR_ITS ---
PROCEDURE INFORMATION: Exam: XR Chest, 1 View Exam date and time: 02/01/2020 11:29 PM Age: 79 years old Clinical indication: Other: AMS TECHNIQUE: Imaging protocol: XR of the chest Views: 1 view. COMPARISON: CR (CHEST, ) 01/29/2020 6:22 PM FINDINGS: Lungs: Unremarkable. No consolidation. Pleural space: Unremarkable. No pleural effusion. No pneumothorax. Heart/Mediastinum: There is mild cardiomegaly. Vasculature: The aortic knob is calcified and the aorta is unfolded. Bones/joints: Unremarkable. XR/XR chest 1V portable [id number] IMPRESSION: No acute abnormality.
[2020-02-01 23:27] LABS: Basophils % 0.7 %; Eosinophils # 0.1 10^3/uL (0.0-0.8); Eosinophils % 3.2 %; Hemoglobin 11.6 g/dL (11.5-15.3); Lymphocytes # 1.3 10^3/uL (0.8-4.8); Lymphocytes % 30.5 %; Mean Corpuscular HGB Conc 30.5 g/dL (30.0-36.0); Mean Corpuscular Volume 88.6 fL (81-99); Mean Platelet Volume 10.2 fL (7.4-10.4); Monocytes # 0.4 10^3/uL (0.2-0.9); Monocytes % 8.9 %; Neutrophils # 2.5 10^3/uL (1.8-7.7); Neutrophils % 56.7 %; Nucleated Red Blood Cells % 0 %; Platelet Count 164 10^3/cmm (130-400); Red Blood Count 4.29 10^6/uL (4.1-5.3); Red Cell Distribution Width 13.9 % (12.1-15.1); White Blood Count 4.4 10^3/uL (4.0-10.0)
[2020-02-01] MEDS: sodium chloride 0.9% 500 ML IV (23:54)
[2020-02-01 23:55] LABS: Alanine Aminotransferase 14 U/L (0-33); Albumin Level 4.1 g/dL (3.5-5.2); Alkaline Phosphatase 82 IU/L (35-105); Anion Gap 16.9 (5-19); Aspartate Amino Transferase 23 U/L (0-32); Blood Urea Nitrogen 40 mg/dL (8-23); Calcium 9.7 mg/dL (8.5-10.5); Carbon Dioxide 27 mmol/L (22-29); Chloride 101 mmol/L (98-107); Globulin 2.4 g/dL (1.3-4.6); Glucose 119 mg/dL (65-115); Osmolality Calculated 291 mOsm/kg (285-295); Potassium 3.9 mmol/L (3.5-5.1); Sodium 141 mmol/L (136-145); Total Bilirubin 0.4 mg/dL (0.15-1.2); Total Protein 6.5 g/dL (6.6-8.7)
--- NOTE | 2020-02-01 23:56 | W.ED.AMS ---
HPI - Altered Mental Status General: Chief Complaint: Altered Mental Status Stated Complaint: AMS Time Seen by Provider: 02/01/20 23:09 Source: EMS Mode of arrival: EMS Limitations: altered mental status History of Present Illness: HPI narrative: 79-year-old female who [facility] with altered mental status. Patient's been sent here multiple times for this. Patient received Seroquel there tonight along with tramadol to help her sleep. They state after Seroquel she was difficult to arouse. Patient does have a history of dementia and will arouse currently and tells me her name but is altered otherwise. She has had no fevers and is well-appearing here. Review of Systems General: Reports: ROS unobtainable due to mental status PFSH ED PFSH: Medical History (Updated 02/02/20 @ 00:31 by Gordon Delgado MD) Anemia Stable CAD (coronary artery disease) Carotid artery disease Chronic kidney disease (CKD) CVA (cerebral vascular accident) Dementia Diabetes Hyperlipidemia Hypertension Parkinson disease Peripheral neuropathy Surgical History (Reviewed 01/30/20 @ 01:50 by Aaron Mc[place] [facility] [place] [facility] [place] History of left-sided carotid endarterectomy Family History (Reviewed 01/30/20 @ 01:50 by Aaron Mcg[place], [facility] [place] [facility] [place] Other Stroke Social History (Reviewed 01/30/20 @ 01:50 by Aaron Mcg[place], [facility] [place] [facility] [place] Smoking and tobacco status: never smoked Alcohol intake: never Course Vital Signs: Vital signs: Vital Signs Temperature 98.2 F 02/01/20 23:06 Pulse Rate 59 L 02/01/20 23:06 Respiratory Rate 14 02/01/20 23:06 Blood Pressure 160/56 02/01/20 23:06 Pulse Oximetry 92 02/01/20 23:06 MDM - Altered Mental Status MDM Narrative: Medical decision making narrative: Patient presents with altered mental status likely due to her medications. Patient has been taking Seroquel [facility] the [facility]iary and tramadol. Patient is now awake and alert able answer all my questions. Patient stated she had CT scan days ago which is correct and she refuses another CT of the head. Patient's lab work is all normal here. Patient is stable for discharge back to [facility]. Lab Data: Labs: Lab Results 06/30/20 06/30/20 Range/Units 23:20 23:20 WBC 4.4 (4.0-10.0) 10^3/ uL RBC 4.29 (4.1-5.3) 10^6/u L Hgb 11.6 (11.5-15.3) g/dL Hct 38.0 (37.0-47.0) % MCV 88.6 (81-99) fL MCH 27.0 L (28.0-34.0) pg MCHC 30.5 (30.0-36.0) g/dL RDW 13.9 (12.1-15.1) % Plt Count 164 (130-400) 10^3/c mm MPV 10.2 (7.4-10.4) fL Neut % (Auto) 56.7 % Lymph % (Auto) 30.5 % [place] % (Auto) 8.9 % Eos % (Auto) 3.2 % Baso % (Auto) 0.7 % Neut # (Auto) 2.5 (1.8-7.7) 10^3/u L Lymph # (Auto) 1.3 (0.8-4.8) 10^3/u L [place] # (Auto) 0.4 (0.2-0.9) 10^3/u L Eos # (Auto) 0.1 (0.0-0.8) 10^3/u L Baso # (Auto) 0.0 (0.0-0.1) 10^3/u L Nucleated RBC % (a uto) 0 % Nucleated RBCs # 0.0 /100WBC Sodium 141 (136-145) mmol/L Potassium 3.9 (3.5-5.1) mmol/L Chloride 101 (98-107) mmol/L Carbon Dioxide 27 (22-29) mmol/L Anion Gap 16.9 (5-19) BUN 40 H (8-23) mg/dL Creatinine 1.4 H (0.5-0.9) mg/dL Glucose 119 H (65-115) mg/dL Calculated Osmolal ity 291 (285-295) mOsm/k g Calcium 9.7 (8.5-10.5) mg/dL Total Bilirubin 0.4 (0.15-1.2) mg/dL AST 23 (0-32) U/L ALT 14 (0-33) U/L Alkaline Phosphata se 82 (35-105) IU/L Total Protein 6.5 L (6.6-8.7) g/dL Albumin 4.1 (3.5-5.2) g/dL Globulin 2.4 (1.3-4.6) g/dL Discharge Plan Discharge Patient Disposition: Home, Self-Care Clinical Impression: Altered mental status Qualifiers: Altered mental status type: unspecified Qualified Code(s): R41.82 - Altered mental status, unspecified Condition: Stable Prescriptions: No Action tramadol 50 mg Tablet 100 mg PO Q4H PRN (Reason: Pain) RF: 0 glipizide 2.5 mg Tablet Extended Release 24hr 2.5 mg PO DAILY RF: 0 pramipexole 1 mg Tablet 1 mg PO QID RF: 0 metformin 500 mg Tablet 500 mg PO DAILY RF: 0 carbidopa-levodopa 50-200 mg Tablet Extended Release 1 tab PO DAILY RF: 0 clopidogrel 75 mg Tablet 75 mg PO DAILY RF: 0 amlodipine 5 mg Tablet 7.5 mg PO DAILY RF: 0 gabapentin 300 mg Capsule 300 mg PO TID RF: 0 atenolol 50 mg Tablet 50 mg PO DAILY RF: 0 acetaminophen [Tylenol] 325 mg Capsule 650 mg PO QID PRN (Reason: Pain) RF: 0 Thera-M 9 mg iron-400 mcg Tablet 1 tab PO DAILY RF: 0 [place]-3 350 mg-235 mg- 90 mg-597 mg Capsule,Delayed Release(Dr/Ec) 1 cap PO DAILY RF: 0 atorvastatin 40 mg Tablet 80 mg PO DAILY Qty: 60 RF: 0 aspirin 325 mg Tablet,Delayed Release (Dr/Ec) 325 mg PO DAILY Qty: 30 RF: 0 Risperdal 1 mg Tablet 1 mg PO DAILY RF: 0 Discharge Orders: Discharge Order (Routine); Ordered 02/02/20 Ordered By: Gordon Delgado Referrals: Surendra Matute [Primary Care Provider] - 1-3 days Discharge Diet: Advance as tolerated Discharge Activity: Resume usual activity Patient Instructions: Altered Mental Status (ED) Coding Level of Care Code ED Supervisor Pressing Department for Dhruv Oliver
[2020-02-02 01:44] VITALS: BP 146/82; PULSE 66; RESP 18; O2SAT 94
== END 2020-02-02 03:30 | disposition home or self-care (01) ==
PROVIDERS: Emergency Provider Emergency Medicine; PCP Physician Assistant Medical
DX: R41.82 Altered mental status, unspecified (principal); Z79.02 Long term (current) use of antithrombotics/antiplatelets; Z79.82 Long term (current) use of aspirin; I25.10 Atherosclerotic heart disease of native coronary artery without angina pectoris; Z86.73 Personal history of transient ischemic attack (TIA), and cerebral infarction without residual deficits; E78.5 Hyperlipidemia, unspecified; I10 Essential (primary) hypertension; G20 Parkinson's disease; F02.80 Dementia in other diseases classified elsewhere, unspecified severity, without behavioral disturbance, psychotic disturbance, mood disturbance, and anxiety; E11.42 Type 2 diabetes mellitus with diabetic polyneuropathy; Z79.84 Long term (current) use of oral hypoglycemic drugs
CPT/HCPCS: 12345; 36415; 71045; 80053; 85025; 96360; 99282; 99283; J7040

== ENCOUNTER 2020-02-08 08:21 | Emergency (ER) | payer MEDICARE, MEDICAID, SELFPAY ==
[2020-02-08] VITALS (7 sets, daily range): BP systolic 132–150; BP diastolic 60–107; PULSE 52–81; RESP 16–20; TEMP 37.1–37.2; O2SAT 83–97
--- NOTE | 2020-02-08 08:49 | XR_ITS ---
WS: [id number] PELVIS AND LEFT HIP HISTORY: Pain, falls,; COMPARISON: 02/16/2013 LEFT hip: Limited evaluation of the LEFT hip. Motion and poor positioning. Possible nondisplaced frac ture through the LEFT greater trochanter. Incomplete visualization of the pelvis. The entire pelvis is not included. XR/XR hip LT 2-3V wo/w pel* [id number] IMPRESSION: 1. Extremely limited evaluation of the pelvis and LEFT hip. 2. Lucency through the greater trochanter of the LEFT hip. Indeterminate for f racture. 3. Consider CT evaluation of the pelvis and LEFT hip.
--- NOTE | 2020-02-08 08:49 | ED_ITS ---
HPI - Extremity Problem General: Chief complaint: Extremity Problem,Nontraumatic Stated complaint: fall Time Seen by Provider: 02/08/20 08:27 Source: patient, EMS and other (half-way report) Mode of arrival: EMS Limitations: language barrier History of Present Illness: HPI Narrative: Patient is an 79-year-old female with a history of Parkinson's dementia here for complaints of left hip pain. According to the half-way whom I contacted myself, patient has been complaining of left-sided hip pain all morning. They tell me patient does have a history of left-sided sciatic pain and often has chronic pain to this area. Patient was sent with papers from the half-way and it appears she had x-rays of her bilateral hips and pelvis on 02/05. After speaking with half-way staff they do tell me there is documentation of a fall the following day. Patient has a longstanding history of frequent falls. She is supposed to be ambulating with assistance at all time. Patient appears at her baseline upon arrival. She often moans and rambles incoherently however sometimes is able to stop this and answer questions appropriately. MD Complaint: joint pain (L hip) Onset (ago): unknown (chronically but staff states she was complaining moreso this AM) Location: left Exacerbating factors: range of motion and palpation Associated symptoms: Reports no associated symptoms Review of Systems General: Reports: ROS unobtainable due to medical condition [facility] ED PFSH: Medical History (Updated 02/08/20 @ 12:17 by YONG Perales) Anemia Stable CAD (coronary artery disease) Carotid artery disease Chronic kidney disease (CKD) CVA (cerebral vascular accident) Dementia Diabetes Hyperlipidemia Hypertension Parkinson disease Peripheral neuropathy Surgical History History of left-sided carotid endarterectomy Family History Other Stroke Social History Smoking and tobacco status: never smoked Alcohol intake: never Physical Exam Const: COMMON NORMALS: no acute distress, average body habitus, alert and well nourished ORIENTATION/CONSCIOUSNESS: Yes awake, Yes oriented to person, Yes oriented to place (knows she is at a hospital ) and Yes Other orientation findings (she recognizes son who is in the room ) OTHER: half-way states pt at her mental baseline this AM; son who arrives later in visit confirms this HENMT: COMMON NORMALS: normocephalic and atraumatic HEAD & SCALP: normal to inspection, normocephalic and atraumatic FACE & SINUS: normal facial exam Eye: COMMON NORMALS: Equal, round and reactive pupils present and EOMs intact bilaterally PUPIL: Yes Equal, round and reactive pupils present Neck/C-Spine: COMMON NORMALS: full ROM CERVICAL SPINE: Yes cervical ROM normal, No pain with cervical ROM, No Cervical spine tenderness and No Paracervical muscle tenderness Resp: COMMON NORMALS: normal respiratory effort and clear to auscultation bilaterally AUSCULTATION: clear to auscultation bilaterally Cardio: COMMON NORMALS: regular rate and regular rhythm RATE: regular rate RHYTHM: regular rhythm GI: COMMON NORMALS: Normal to inspection, nondistended, normoactive bowel sounds present, Soft to palpation, No hepatosplenomegaly present and no masses PALPATION: Yes Soft to palpation, Yes Tenderness to palpation present (GI) (mild tenderness to L groin region) and Yes No hepatosplenomegaly present Back/Pelvis: COMMON NORMALS: thoracic and lumbar spine normal to inspection, no thoracic nor lumbar tenderness and thoraco-lumbar ROM normal Extremity: GENERAL: Yes normal exam except as noted OTHER: TTP L posterior hip; leg is not shortened or rotated Neuro: JOSLYN COMA SCALE: document GCS findings [place] coma scale eye opening: Spontaneous [place] coma scale verbal response: Orientated [place] coma scale motor response: Obey commands [place] coma scale total score: 15 COMMON NORMALS: moves all extremities, no focal motor deficits and no sensory deficits noted SENSORIUM/ORIENTATION: Yes alert, Yes oriented to person and Yes oriented to place (knows she is at a hospital ) GAIT: Yes Unable to assess gait Skin: COMMON NORMALS: no rashes or lesions noted NARRATIVE SKIN EXAM: pt has very small stage I decub sacral ulcer present GENERAL SKIN EXAM: no rashes or lesions noted Course Vital Signs: Vital signs: Vital Signs Temperature 98.7 F 02/08/20 08:22 Pulse Rate 52 L 02/08/20 11:17 Respiratory Rate 18 02/08/20 11:17 Blood Pressure 146/64 02/08/20 11:17 Pulse Oximetry 95 02/08/20 11:17 MDM - Extremity (Nontraumatic) MDM Narrative: Medical decision making narrative: Patient does not have any acute fractures of her left hip or pelvis. Labs appear normal/at baseline. Patient has questionable UTI. I will place her on Macrobid and obtain a culture. Spoke to patient's son/guardian about pain medications at the half-way. He agrees to with not increasing pain medications as this will make her even more prone to falls. He feels something more for anxiety might help as he feels this contributes greatly to her discomfort. Patient was taking Xanax 0.25 twice daily. We will increase this so she can take it q6h prn. Patient is stable to be discharged back to the half-way at this time. Lab Data: Labs: Lab Results 02/08/20 02/08/20 02/08/20 Range/Units 08:54 09:05 09:05 WBC 4.5 (4.0-10.0) 10^3/ uL RBC 4.08 L (4.1-5.3) 10^6/u L Hgb 11.0 L (11.5-15.3) g/dL Hct 36.7 L (37.0-47.0) % MCV 90.0 (81-99) fL MCH 27.0 L (28.0-34.0) pg MCHC 30.0 (30.0-36.0) g/dL RDW 13.9 (12.1-15.1) % Plt Count 196 (130-400) 10^3/c mm MPV 10.6 H (7.4-10.4) fL Neut % (Auto) 66.7 % Lymph % (Auto) 22.9 % [place] % (Auto) 7.3 % Eos % (Auto) 2.0 % Baso % (Auto) 0.9 % Neut # (Auto) 3.0 (1.8-7.7) 10^3/u L Lymph # (Auto) 1.0 (0.8-4.8) 10^3/u L [place] # (Auto) 0.3 (0.2-0.9) 10^3/u L Eos # (Auto) 0.1 (0.0-0.8) 10^3/u L Baso # (Auto) 0.0 (0.0-0.1) 10^3/u L Nucleated RBC % (a uto) 0 % Nucleated RBCs # 0.0 /100WBC Sodium 140 (136-145) mmol/L Potassium 4.1 (3.5-5.1) mmol/L Chloride 104 (98-107) mmol/L Carbon Dioxide 26 (22-29) mmol/L Anion Gap 14.1 (5-19) BUN 27 H (8-23) mg/dL Creatinine 1.5 H (0.5-0.9) mg/dL Glucose 146 H (65-115) mg/dL Calculated Osmolal ity 290 (285-295) mOsm/k g Calcium 10.0 (8.5-10.5) mg/dL Total Bilirubin 0.3 (0.15-1.2) mg/dL AST 29 (0-32) U/L ALT < 5 (0-33) U/L Alkaline Phosphata se 69 (35-105) IU/L Total Protein 6.3 L (6.6-8.7) g/dL Albumin 3.8 (3.5-5.2) g/dL Globulin 2.5 (1.3-4.6) g/dL Urine Color Yellow (Yellow) Urine Appearance Sl hazy (CLEAR) Urine pH 5.0 (5-7) Ur Specific Gravit y 1.020 (1.005-1.030) Urine Protein Neg (Negative) Urine Glucose (UA) Norm (Normal) Urine Ketones Negative (Negative) Urine Blood Neg (Negative) Urine Nitrate Positive H (Negative) Urine Bilirubin Neg (NEGATIVE) Urine Urobilinogen Norm (Negative) mg/dL Ur Leukocyte Ernestina ase Trace H (Negative) Urine RBC None (0-2) /hpf Urine WBC 10-15 H (0-5) /hpf Ur Squamous Epith Cells 5-10 H (0-5) Amorphous Sediment Not Reportable Urine Bacteria 3+ H (NONE) Imaging Data^: CXR: Radiologist's impression: [address] [address] XRay Report Signed Patient: Ghazala Crawford Unit #: [id number] : 1940 Age/Sex: 79 / F ADM Date: 02/08/20 Loc: ER Room/Bed: Attending Dr: Ordering Provider/Ordering MD: Natali Verduzco Date of Service: 02/08/20 Procedure(s): XR chest 1V portable [id number] Accession Number(s): [id number] Report Number: [id number] WS: [id number] PORTABLE CHEST HISTORY: chest pain COMPARISON: 02/01/2020 Lungs are clear and well expanded. No pleural effusion or pneumothorax. Cardiac size: Normal. Mediastinum/Aorta: Mild atherosclerosis aorta. Osteopenia. XR/XR chest 1V portable [id number] IMPRESSION: Unremarkable portable chest. Dictated By: Esthela Duran DO Signed By: Esthela Duran DO Signed Date/Time: 02/08/20942 DD/ 1 L hip/pelvis XR: Radiologist's impression: [place] [address] XRay Report Signed Patient: Ghazala Crawford Unit #: [id number] : 1940 Age/Sex: 79 / F ADM Date: 02/08/20 Loc: ER Room/Bed: Attending Dr: Ordering Provider/Ordering MD: Natali Verduzco Date of Service: 02/08/20 Procedure(s): XR hip LT 2-3V wo/w pel* [id number] Accession Number(s): [id number] Report Number: [id number] WS: [id number] PELVIS AND LEFT HIP HISTORY: Pain, falls,; COMPARISON: 02/16/2013 LEFT hip: Limited evaluation of the LEFT hip. Motion and poor positioning. Possible nondisplaced fracture through the LEFT greater trochanter. Incomplete visualization of the pelvis. The entire pelvis is not included. XR/XR hip LT 2-3V wo/w pel* [id number] IMPRESSION: 1. Extremely limited evaluation of the pelvis and LEFT hip. 2. Lucency through the greater trochanter of the LEFT hip. Indeterminate for fracture. 3. Consider CT evaluation of the pelvis and LEFT hip. Dictated By: Esthela Duran DO Signed By: Esthela Duran DO Signed Date/Time: 02/08/20 0945 DD/ 0943 CT pelvis/hips: Radiologist's impression: [address] [place] [address] CT Scan Report Signed Patient: Ghazala Crawford Unit #: [id number] : 1940 Age/Sex: 79 / F ADM Date: 02/08/20 Loc: ER Room/Bed: Attending Dr: Ordering Provider/Ordering MD: Natali Verduzco Date of Service: 02/08/20 Procedure(s): CT bony pelvis 22178 Accession Number(s): [id number] Report Number: [id number] WS: [id number] CT PELVIS WITHOUT CONTRAST. HISTORY: pelvis L hip evaluation (abnormal XR findings) TECHNIQUE: Contiguous imaging is performed of the pelvis without contrast. Coronal and sagittal reformats are reviewed. All CT scans at [facility] use at least one of these dose optimization techniques: automated exposure control; mA and/or kV adjustment per patient size (includes targeted exams where dose is matched to clinical indication); or iterative reconstruction. DLP: 250.82 mGy.cm COMPARISON: Radiographs of 02/08/2020 Mild diffuse osteopenia. No fractures are identified. No fracture through the LEFT greater trochanter. Mild narrowing of the hip joints bilaterally. No sacral fracture. Mild degenerative changes along the SI joints and at the L5-S1 disc space. Extensive calcifications in the distal aorta and common iliac arteries. No free fluid or adenopathy in the pelvis. CT/CT bony pelvis [id number] IMPRESSION: No pelvic fracture. Dictated By: Esthela Duran DO Signed By: Esthela Duran DO Signed Date/Time: 02/08/20 1153 DD/ 1149 Discharge Plan Discharge Patient Disposition: Home, Self-Care Clinical Impression: Chronic left hip pain Acute cystitis Qualifiers: Hematuria presence: without hematuria Qualified Code(s): N30.00 - Acute cystitis without hematuria Condition: Stable Prescriptions: New Macrobid 100 mg capsule 100 mg PO BID 7 Days Qty: 14 RF: 0 Changed Xanax 0.25 mg Tablet 0.25 mg PO Q6H PRN (Reason: Anxiety) Qty: 20 RF: 0 No Action tramadol 50 mg Tablet 100 mg PO Q4H PRN (Reason: Pain) RF: 0 glipizide 2.5 mg Tablet Extended Release 24hr 2.5 mg PO DAILY RF: 0 Seroquel 25 mg Tablet 25 mg PO DAILY RF: 0 Tylenol 325 mg Tablet 650 mg PO QID PRN (Reason: Pain) RF: 0 Tylenol 325 mg Tablet 325 mg PO BID RF: 0 Miralax 17 gram Powder In Packet 17 g PO DAILY PRN (Reason: Constipation) RF: 0 Zofran 4 mg Tablet 4 mg PO Q4H PRN (Reason: Nausea) RF: 0 Senna-S 8.6-50 mg Tablet 1 tab PO BID PRN (Reason: Constipation) RF: 0 Milk of Magnesia 400 mg/5 mL Suspension 30 ml PO DAILY PRN (Reason: unknown) RF: 0 bisacodyl 10 mg Suppository [address] DAILY PRN (Reason: Constipation) RF: 0 Enema Disposable 19-7 gram/118 mL Enema [address] DAILY PRN (Reason: Constipation) RF: 0 Biofreeze (menthol) 4 % Gel 1 applic TOPICAL TID PRN (Reason: unknown) RF: 0 Dressing Change See Rx Instructions .ROUTE .COMPLEX RF: 0 pramipexole 1 mg Tablet 1 mg PO QID RF: 0 metformin 500 mg Tablet 500 mg PO DAILY RF: 0 carbidopa-levodopa 50-200 mg Tablet Extended Release 1 tab PO DAILY RF: 0 clopidogrel 75 mg Tablet 75 mg PO DAILY RF: 0 amlodipine 5 mg Tablet 7.5 mg PO DAILY RF: 0 gabapentin 300 mg Capsule 300 mg PO TID RF: 0 atenolol 50 mg Tablet 50 mg PO DAILY RF: 0 Thera-M 9 mg iron-400 mcg Tablet 1 tab PO DAILY RF: 0 [place]-3 350 mg-235 mg- 90 mg-597 mg Capsule,Delayed Release(Dr/Ec) 1 cap PO DAILY RF: 0 atorvastatin 40 mg Tablet 80 mg PO DAILY Qty: 60 RF: 0 aspirin 325 mg Tablet,Delayed Release (Dr/Ec) 325 mg PO DAILY Qty: 30 RF: 0 Discharge Orders: Discharge Order (Routine); Ordered 02/08/20 Ordered By: Natali Verduzco Referrals: Surendra Matute [Primary Care Provider] - Activity Restrictions/Additional Instructions: As I discussed with patient's son/guardian I do not want to increase patient's pain medications stronger than tramadol as this will most likely increase her risk of falling. He requested that we increase patient's anxiety medications as he feels that this contributes dramatically to her pain. Patient was on Xanax 0.25 twice daily. We will increase this so that she may take it every 6 hours as needed. She may continue taking the tramadol as prescribed. Recommend she follow-up with half-way provider. Coding Level of Care Code ED [employer] F[employer] Exam Comprehensive
--- NOTE | 2020-02-08 09:09 | XR_ITS ---
WS: [id number] PORTABLE CHEST HISTORY: chest pain COMPARISON: 02/01/2020 Lungs are clear and well expanded. No pleural effusion or pneumothorax. Cardiac size: Normal. Mediastinum/Aorta: Mild atherosclerosis aorta. Osteopenia. XR/XR chest 1V portable [id number] IMPRESSION: Unremarkable portable chest.
[2020-02-08 09:12] LABS: Basophils % 0.9 %; Eosinophils # 0.1 10^3/uL (0.0-0.8); Hematocrit 36.7 % (37.0-47.0); Lymphocytes % 22.9 %; Mean Platelet Volume 10.6 fL (7.4-10.4); Monocytes # 0.3 10^3/uL (0.2-0.9); Monocytes % 7.3 %; Neutrophils % 66.7 %; Nucleated Red Blood Cells % 0 %; Platelet Count 196 10^3/cmm (130-400); Red Blood Count 4.08 10^6/uL (4.1-5.3); Red Cell Distribution Width 13.9 % (12.1-15.1); White Blood Count 4.5 10^3/uL (4.0-10.0)
[2020-02-08 09:27] LABS: Add Urine Microscopic? YES; Bilirubin Urine Neg (NEGATIVE); Blood Urine Neg (Negative); Glucose Urine UA Norm (Normal); Ketones Urine Negative (Negative); Leukocyte Esterase Urine Trace (Negative); Nitrate Urine Positive (Negative); Protein Urine Neg (Negative); Urine Appearance SL Hazy (CLEAR); Urine Color Yellow (Yellow); Urobilinogen Urine Norm (Negative)
[2020-02-08 09:30] LABS: Alanine Aminotransferase < 5 U/L (0-33); Albumin Level 3.8 g/dL (3.5-5.2); Alkaline Phosphatase 69 IU/L (35-105); Anion Gap 14.1 (5-19); Aspartate Amino Transferase 29 U/L (0-32); Blood Urea Nitrogen 27 mg/dL (8-23); Carbon Dioxide 26 mmol/L (22-29); Chloride 104 mmol/L (98-107); Globulin 2.5 g/dL (1.3-4.6); Glucose 146 mg/dL (65-115); Osmolality Calculated 290 mOsm/kg (285-295); Potassium 4.1 mmol/L (3.5-5.1); Sodium 140 mmol/L (136-145); Total Bilirubin 0.3 mg/dL (0.15-1.2); Total Protein 6.3 g/dL (6.6-8.7)
[2020-02-08 09:47] LABS: Add Urine Culture? Yes; Bacteria Urine 3+
--- NOTE | 2020-02-08 09:53 | CT_ITS ---
WS: [id number] CT PELVIS WITHOUT CONTRAST. HISTORY: pelvis L hip evaluation (abnormal XR findings) TECHNIQUE: Contiguous imaging is performed of the pelvis without contrast. Coronal and sagittal refor mats are reviewed. All CT scans at [facility] use at least one of these dose optimization techniques: automated exposure control; mA and/or kV adjustment per patient size (includes targeted exams where dose is matched to clinical indication); or iterative reconstruction. DLP: 250.82 mGy.cm COMPARISON: Radiographs of 02/08/2020 Mild diffuse osteopenia. No fractures are identified. No fracture through the LEFT greater trochanter . Mild narrowing of the hip joints bilaterally. No sacral fracture. Mild degenerative changes along t he SI joints and at the L5-S1 disc space. Extensive calcifications in the distal aorta and common iliac arteries. No free fluid or adenopathy i n the pelvis. CT/CT bony pelvis [id number] IMPRESSION: No pelvic fracture.
[2020-02-08] MEDS: LORazepam 2 mg/mL INJ 1 mL 1 MG IVP (10:28)
== END 2020-02-08 15:23 | disposition home or self-care (01) ==
PROVIDERS: Emergency Provider Physician Assistant; PCP Physician Assistant Medical
DX: G89.29 Other chronic pain (principal); M25.552 Pain in left hip; N30.00 Acute cystitis without hematuria; Z79.02 Long term (current) use of antithrombotics/antiplatelets; Z79.82 Long term (current) use of aspirin; I25.10 Atherosclerotic heart disease of native coronary artery without angina pectoris; Z86.73 Personal history of transient ischemic attack (TIA), and cerebral infarction without residual deficits; G20 Parkinson's disease; E11.9 Type 2 diabetes mellitus without complications; E78.5 Hyperlipidemia, unspecified; I10 Essential (primary) hypertension
CPT/HCPCS: 12345; 71045; 72192; 73502; 80053; 81001; 81003; 85025; 87077; 87086; 87186; 96374; 96375; 99283; 99284; J0131; J2060